=== PATIENT | male | born 1935 | race Caucasian/White ===

== ENCOUNTER 2017-10-19 18:07 | Inpatient (IN) | payer OTHER, MEDICARE ==
[~2017-10-19] VITALS: Ht 170.2 cm; Wt 79.9 kg
[~2017-10-19 18:07] MED LIST: AMIODARONE HCL200 M2 PO; ASPIRIN EC325 MG PO; ASPIRIN EC81 M1 PO; CARVEDILOL3.125 M1 PO; CARVEDILOL6.25 MG PO; FIBERCON625 M1 PO; FLEXERIL10 MG PO; FUROSEMIDE40 MG PO; IRBESARTAN75 MG PO; PERCOCET 325 MG1 TA2 PO; PRAVASTATIN SOD20 M2 PO; PRAVASTATIN SOD20 MG PO
[2017-10-19 18:50] LABS: ABSOLUTE BASOPHIL COUNT 0 /CUMM (0.0-0.2); ABSOLUTE EOSINOPHIL COUNT 0.1 /CUMM (0.0-0.7); ABSOLUTE GRANULOCYTE CT 3.7 /CUMM (1.4-6.5); ABSOLUTE LYMPH COUNT 0.9 /CUMM (1.2-3.4); ABSOLUTE MONOCYTE COUNT 0.6 /CUMM (0.10-0.60); BASOPHIL % 0.5 % (0.0-2.0); GRANULOCYTE % 68.9 % (42.2-75.2); HEMATOCRIT 35.7 % (42-52); MEAN CORPUSCULAR HGB CONC 32.1 G/DL (33.0-37.0); MEAN CORPUSCULAR VOLUME 96.4 FL (80.0-94.0); MEAN PLATELET VOLUME 8.7 FL (7.4-10.4); PLATELET COUNT 147 /CUMM (130-400); RBC DISTRIBUTION WIDTH 14.9 % (11.5-14.5); WHITE BLOOD CELL COUNT 5.4 /CUMM (4.8-10.8)
--- NOTE | 2017-10-19 19:47 | ED CARDIAC/CP/PALPITATIONS ---
History of Present Illness General Chief Complaint: General Adult Stated Complaint: SWELLING TO LOWER EXTREMITIES/?UTI Source: patient, family, old records Exam Limitations: no limitations Vital Signs & Intake/Output Vital Signs & Intake/Output Vital Signs Date Time Temp Pulse Resp B/P B/P Pulse O2 O2 Flow FiO2 Mean Ox Delivery Rate 10/19 1812 97.0 81 17 117/71 95 Room Air Allergies Coded Allergies: ramipril (Severe, CONFUSION 08/18/17) Reconcile Medications Amiodarone HCl 200 MG TABLET 0.5 TAB PO QAM HEART (Reported) Aspirin (Ecotrin*) 81 MG TABLET.DR 1 TAB PO QAM HEART/BLOOD (Reported) Calcium Polycarbophil (Fibercon) 625 MG TABLET 2 TAB PO DAILY FIBER Carvedilol 3.125 MG TABLET 1 TAB PO BID HEART (Reported) Furosemide 40 MG TABLET 1 TAB PO BID DIURETIC (Reported) Pravastatin Sodium 20 MG TABLET 1 TAB PO QPM CHOLESTEROL (Reported) Triage Note: PT TO ED WITH C/O WORSENING BLE EDEMA OVER THE PAST COUPLE DAYS. TAKES DAILY LASIX. REPORTS 4 LB WEIGHT GAIN IN THAT TIME PERIOD. DENIES SOB. ALSO REPORTS URINARY URGENCY/FREQUENCY AT NIGHT RECENTLY. PER PTS DAUGHTER, SEEMS SLIGHTLY CONFUSED FROM BASELINE. Triage Nurses Notes Reviewed? yes Onset: Abrupt Duration: day(s): (3), constant Timing: recent history Quality/Severity: moderate Radiation: no radiation Activities at Onset: none Modifying Factors: Worsens With: movement. Nitro Today/Relief: no nitro taken today Associated Symptoms: DENIES HPI: 82 year old male with past medical history of dilated cardiomyopathy, heart failure with reduced ejection fraction of 20% status post pacemaker placement, chronic kidney disease, history of pericarditis and left bundle branch block presents to the ER for evaluation complaining of a 4 pound weight gain in 3 days associated with worsening bilateral lower extremity swelling feeling winded short of breath. Patient is been unable to lay back secondary to shortness of breath he is on 40 mg Lasix twice a day no recent change in his dose. His executive talent acquisition consultant is Dr. Gardner he denies chest pain cough fever chills. He reports urinary urgency which she attributes to being on his Lasix. (Dimple TAMAYO,Blaze) Past History Travel History Traveled to [place] past 21 day No Medical History Any Pertinent Medical History? see below for history Neurological: NONE EENT: NONE Cardiovascular: AFIB (? transient), cardiomyopathy, CHF, NSTEMI (possibly), BRADYCARDIA Respiratory: NONE Gastrointestinal: ? hx colon polyps Hepatic: NONE Renal: chronic kidney disease Musculoskeletal: degen joint disease, falls Psychiatric: NONE Endocrine: NONE Blood Disorders: NONE Cancer(s): NONE EDUCATION REP/Reproductive: NONE History of MRSA: No History of VRE: No History of CDIFF: No Surgical History Surgical History: Medtronic AICD/PPM placed 2012, with multiple battery/lead replacements, last in 04/2017 Psychosocial History Who do you live with Patient/Self Services at Home None What is your primary language Cambodian Tobacco Use: Never used Family History Family History, If Any: MOTHER, , Age 90; Cause: CHF (congestive heart failure). FATHER (Hx fall). , Age 90; Cause: Pneumonia. Hx Contributory? No (Blaze You) Review of Systems Review of Systems Constitutional: Reports: see HPI. Comments Review of systems: See HPI, All other systems negative. Constitutional, no chills no fever, HEENT: no sore throat no congestion Cardiovascular: No chest pain , Skin: no rashes, no change in skin Respiratory: dyspnea no cough GI: No nausea no vomiting, no diarrhea, : No dysuria Muscle skeletal: No joint pain, no back pain, Neurologic: , no headache Heme/endocrine: No bruising Immunology: No lymphadenopathy (Blaze You) Physical Exam Physical Exam General Appearance: well developed/nourished, alert, awake Cardiovascular: regular rate/rhythm Comments: Well-developed well-nourished person in no acute distress HEENT: Normal EENT exam; PERRL, EOMI. HEAD is atraumatic. moist mucous membranes. Neck: Supple, no lymphadenopathy, normal range of motion Back: Nontender, no CVA tenderness. Full range of motion Cardiovascular: Regular rate and rhythms no murmurs Respiratory: No respiratory distress. Patient speaking in full complete sentences diminished breath sounds bilaterally Abdomen: Soft, nontender nondistended, no appreciable organomegaly. No ascites. Extremity: 3+ pitting lower extremity edema, full range of motion of extremities , 5 out of 5 strength noted to bilateral upper and lower extremities Neuro: Alert oriented x3, motor sensory normal, There were no obvious focal neurologic abnormalities. Skin: No appreciable rash on exposed skin, skin is warm and dry. Psych: Mood and affect is normal, memory and judgment is normal. Core Measures ACS in differential dx? Yes CVA/TIA Diagnosis No Sepsis Present: No Sepsis Focused Exam Completed? No (Blaze You) Progress Differential Diagnosis: AMI, aortic dissection, atrial fibrillation, CHF/pulm edema, musculoskeletal pain, pneumonia, pneumothorax, pulmonary embolism, unstable angina Diagnostic Imaging: Viewed by Me: Radiology Read. Discussed w/RAD: Radiology Read. Radiology Impression: PATIENT: TRISTAN HUBBARD JR PRESENT AGE: 82 PATIENT ACCOUNT NO: [id number] : 33 LOCATION: [facility] ORDERING PHYSICIAN: Bret TAMAYO SERVICE DATE: 10/19/17 EXAM TYPE : RAD - XRY-CHEST XRAY, TWO VIEWS EXAMINATION: CHEST 2 VIEWS CLINICAL INFORMATION: Shortness of breath. COMPARISON: 08/18/2017. TECHNIQUE: PA and lateral views of the chest were obtained. FINDINGS: The cardiac silhouette is enlarged, though stable. Pacer leads overlie the right atrium and right ventricle. There is a small left pleural effusion. There is a trace right pleural effusion. There is associated airspace disease at the left lung base. The osseous structures are stable. IMPRESSION: Stable cardiomegaly with left greater than right bilateral pleural effusions. Associated airspace disease is present at the left lung base. DICTATED BY: Tobi Lovelace MD DATE/TIME DICTATED :10/19/171944 GRAIN ELEVATOR AGENT:JANICE DATE/TIME TRANSCRIBED:10/19/171944 CONFIDENTIAL, DO NOT COPY WITHOUT APPROPRIATE AUTHORIZATION. < Electronically signed in Other Vendor System> SIGNED BY: Tobi Lovelace MD 10/19/171948 Initial ED EKG: normal axis (PACED ), PACED AT 80, NO ACUTE ST SEG CHANGES, NORMAL AXIS (Blaze You) Plan of Care: Orders Procedure Date/time Status Heart Healthy Diet 10/20 B Active Misc Message 10/19 2137 Active ED Holding Orders 10/19 2137 Active Admit to inpatient 10/19 2137 Active Vital Signs 10/19 2137 Active Code Status 10/19 2137 Active Telemetry/Filler Shredder Helper 10/20 2007 Active URINALYSIS 10/19 1818 Complete TROPONIN LEVEL 10/19 1818 Complete COMPREHENSIVE METABOLIC PANEL 10/19 1818 Complete CBC WITHOUT DIFFERENTIAL 10/19 1818 Complete B-TYPE NATRIURETIC PEP (BNP) 10/19 1818 Complete EKG 10/19 1818 Active Laboratory Tests 10/19/171848: Urine Color YEL, Urine Clarity CLEAR, Urine pH 6.0, Ur Specific [place] 1.010, Urine Protein NEG, Urine Ketones NEG, Urine Nitrite NEG, Urine Bilirubin NEG, Urine Urobilinogen 0.2, Ur Leukocyte Esterase SMALL H, Ur Microscopic SEDIMENT EXAMINED, Urine RBC RARE, Urine WBC RARE, Ur Epithelial Cells RARE, Urine Bacteria RARE H, Urine Mucus RARE, Urine Hemoglobin NEG, Urine Glucose NEG 10/19/171839: Anion Gap 14, Estimated GFR 45 L, BUN/Creatinine Ratio 18.7, Glucose 93, Calcium 9.5, Total Bilirubin 0.7, AST 17, ALT 18 L, Alkaline Phosphatase 69, Troponin I 0.02, [id number] Pept 6390 H, Total Protein 6.5, Albumin 3.9, Globulin 2.6, Albumin/Globulin Ratio 1.5, CBC w Diff NO MAN DIFF REQ, RBC 3.70 L, MCV 96.4 H, MCH 31.0, MCHC 32.1 L, RDW 14.9 H, MPV 8.7, Gran % 68.9, Lymphocytes % 17.7 L, Monocytes % 10.9 H, Eosinophils % 2.0, Basophils % 0.5, Absolute Granulocytes 3.7, Absolute Lymphocytes 0.9 L, Absolute Monocytes 0.6, Absolute Eosinophils 0.1, Absolute Basophils 0 Labs x-ray were ordered from triage patient medicated with Lasix 40 mg IV call placed his executive talent acquisition consultant Dr. Gardner Case discussed with Dr. Nguyen who evaluated the patient agrees with plan I discussed the patient is family at length all of his labs need for admission at this time wishing agreement with. Patient's creatinine is at baseline. Case discussed with Dr. FLETCHER will admit (Blaze You) (Wendy PIERCE,Naeem Wolf) Departure Departure Time of Disposition: 2125 Disposition: STILL A PATIENT Condition: Stable Clinical Impression Primary Impression: CHF exacerbation Referrals: Patient Has No Primary Care Dr (PCP/Family) Departure Forms: Customer Survey General Discharge Information Admission Note Spoke With: Johnson PIERCE,Lionel Documentation of Exam: Documentation of any treatments & extenuating circumstances including Concerns Regarding Discharge (functional status, medication knowledge or non-compliance, living conditions, etc.) that warrant an admission rather than observation: [ Cardiology consult telemetry monitoring IV diuresis patient has failed outpatient treatment premature discharge would BE medically harmful (Blaze You) PA/STRATEGIC PARTNERSHIP REPRESENTATIVE Co-Sign Statement Statement: ED Attending supervision documentation- [X] I saw and evaluated the patient. I have also reviewed all the pertinent lab results and diagnostic results. I agree with the findings and the plan of care as documented in the PA's/STRATEGIC PARTNERSHIP REPRESENTATIVE's documentation. Patient presents for evaluation of worsening shortness of breath and increasing weight and lower extremity edema. Patient's shortness of breath worsens with lying flat. Past medical history of congestive heart failure. Physical examination reveals decreased air entry bilaterally (with poor inspiratory effort) with mild crackles. Lower extremities reveal 2+ bilateral pitting edema. [] I have reviewed the ED Record and agree with the PA's/STRATEGIC PARTNERSHIP REPRESENTATIVE's documentation. [] Additions or exceptions (if any) to the PAs/STRATEGIC PARTNERSHIP REPRESENTATIVE's note and plan are summarized below: [] (Wendy PIERCE,Naeem Wolf) Critical Care Note Critical Care Note Critical Care Time: non-applicable (Blaze You)
--- NOTE | 2017-10-19 21:59 | History & Physical ---
Sheela PIERCE,[facility] 10/19/17 9339: General Information and HPI History of Present Illness: Mr. Grover is an 82-year-old male with past medical history of HFrEF (EF 20% in 2012), bradycardia status post pacemaker placement, CKD, pericarditis followed by Dr. Gardner who presents with complaints of retaining water. The patient was admitted in July for GI bleed and has been well since then. 4-5 days ago, he started becoming short of breath that was worse with lying down but not worse with exertion. He also noticed some urinary frequency. He notes that he had Breanna's about 5 days ago and he has gained 6 pounds in the past week. He normally uses 0 pillows to sleep and this has not changed. He denies any chest pain, dull pain, nausea, vomiting, diarrhea, dysuria, headache, rash, fever, or chills. He is a former smoker denies alcohol or recreational drug use. Allergies/Medications Allergies: Coded Allergies: ramipril (Severe, CONFUSION 08/18/17) Home Med list Amiodarone HCl 200 MG TABLET 0.5 TAB PO QAM HEART (Reported) Aspirin (Ecotrin*) 81 MG TABLET.DR 1 TAB PO QAM HEART/BLOOD (Reported) Calcium Polycarbophil (Fibercon) 625 MG TABLET 2 TAB PO DAILY FIBER Carvedilol 3.125 MG TABLET 1 TAB PO BID HEART (Reported) Furosemide 40 MG TABLET 1 TAB PO BID DIURETIC (Reported) Pravastatin Sodium 20 MG TABLET 1 TAB PO QPM CHOLESTEROL (Reported) Past History Travel History Traveled to [place] past 21 day No Medical History Neurological: NONE EENT: NONE Cardiovascular: cardiomyopathy, CHF, NSTEMI (possibly), BRADYCARDIA Respiratory: NONE Gastrointestinal: ? hx colon polyps Hepatic: NONE Renal: chronic kidney disease Musculoskeletal: degen joint disease, falls Psychiatric: NONE Endocrine: NONE Blood Disorders: NONE Cancer(s): NONE BRANCHER/Reproductive: NONE History of MRSA: No History of VRE: No History of CDIFF: No Surgical History Surgical History: Medtronic AICD/PPM placed 2012, with multiple battery/lead replacements, last in 04/2017 Past Family/Social History Family History Relations & Conditions if any MOTHER, , Age 90; Cause: CHF (congestive heart failure). FATHER (Hx fall). , Age 90; Cause: Pneumonia. Psychosocial History Who Do You Live With? child (dtr/POA, Roxy Cam) Services at Home: None Primary Language: Icelandic Smoking Status: Former Smoker ETOH Use: denies use Living Will? no Power of Manager Immunology/HCP? yes Name of POA/HCP: dtr Roxy Cam [phone] Functional Ability ADLs Independent: dressing, eating, toileting, bathing. Ambulation: independent IADLs Independent: shopping, housework, finances, food prep, telephone, medication admin. Needs Assist: transportation. Review of Systems Review of Systems Constitutional: Reports: no symptoms. EENTM: Reports: no symptoms. Cardiovascular: Reports: see HPI. Respiratory: Reports: no symptoms. GI: Reports: no symptoms. Genitourinary: Reports: no symptoms. Musculoskeletal: Reports: no symptoms. Skin: Reports: no symptoms. Neurological/Psychological: Reports: no symptoms. Hematologic/Endocrine: Reports: no symptoms. Immunologic/Allergic: Reports: no symptoms. All Other Systems: Reviewed and Negative Exam & Diagnostic Data Last 24 Hrs of Vital Signs/I&O Vital Signs Date Time Temp Pulse Resp B/P B/P Pulse O2 O2 Flow FiO2 Mean Ox Delivery Rate 10/19 2234 98.0 80 16 97/62 96 Room Air 10/19 2111 Room Air 10/19 2018 98.1 84 18 124/72 96 Room Air 10/19 1812 97.0 81 17 117/71 95 Room Air Physical Exam General Appearance Alert, Oriented X3, Cooperative, No Acute Distress HEENT Atraumatic, PERRLA, EOMI Neck No JVD Cardiovascular Regular Rate, Normal S1, Normal S2 Lungs mild crackles at base Abdomen Normal Bowel Sounds, Soft, No Tenderness Extremities Normal Pulses, 2+ pitting edema to below knee bilaterally Last 24 Hrs of Labs/Aakash: Laboratory Tests 10/19/17 184: Urine Color YEL, Urine Clarity CLEAR, Urine pH 6.0, Ur Specific [place] 1.010, Urine Protein NEG, Urine Ketones NEG, Urine Nitrite NEG, Urine Bilirubin NEG, Urine Urobilinogen 0.2, Ur Leukocyte Esterase SMALL H, Ur Microscopic SEDIMENT EXAMINED, Urine RBC RARE, Urine WBC RARE, Ur Epithelial Cells RARE, Urine Bacteria RARE H, Urine Mucus RARE, Urine Hemoglobin NEG, Urine Glucose NEG 10/19/17 184: Anion Gap 14, Estimated GFR 45 L, BUN/Creatinine Ratio 18.7, Glucose 93, Calcium 9.5, Total Bilirubin 0.7, AST 17, ALT 18 L, Alkaline Phosphatase 69, Troponin I 0.02, Nsd-E-Sjsshbujbqw Pept 6390 H, Total Protein 6.5, Albumin 3.9, Globulin 2.6, Albumin/Globulin Ratio 1.5, CBC w Diff NO MAN DIFF REQ, RBC 3.70 L, MCV 96.4 H, MCH 31.0, MCHC 32.1 L, RDW 14.9 H, MPV 8.7, Gran % 68.9, Lymphocytes % 17.7 L, Monocytes % 10.9 H, Eosinophils % 2.0, Basophils % 0.5, Absolute Granulocytes 3.7, Absolute Lymphocytes 0.9 L, Absolute Monocytes 0.6, Absolute Eosinophils 0.1, Absolute Basophils 0 Assessment/Plan Assessment: Mr. Grover is an 82-year-old male with past medical history of HFrEF (EF 20% in 2013), bradycardia status post AICD with biventricular pacemaker, CKD, pericarditis followed by Dr. Gardner who presents with complaints of retaining water. On presentation, vital signs were T 97.0, HR 81, RR 17, BP 117/71, saturating 95 % on room air. Laboratories are significant for hemoglobin 11.5, chloride 94, BUN 20, creatinine 1.5 (baseline 1.3) LFTs negative, BNP 6390, troponin 0 0.02, negative urinalysis. Chest x-ray shows left greater than right pleural effusions. He will be admitted to telemetry and treated for the following problems: 1. Acute decompensated heart failure 2. Macrocytic anemia #Acute acute decompensated heart failure: Patient presents with signs and symptoms of heart failure. His previous echocardiogram in 2013 showed an ejection fraction of 20%. He is followed by Dr. Gardner. He is [place] Heart Association classification 2/3 based on his exercise tolerance. -TTE -Furosemide 40 mg IV twice daily -Cardiology consult -Daily weights, strict I's and O's -Telemetry monitoring -EKG/troponins 3 -Given his ejection fraction and [place] Heart Association classification, patient would likely benefit from addition of spironolactone #Macrocytic anemia: Mild and chronic. No active bleeding. -Iron studies, B12, folate #Chronic medical problems: -Continue other home medications DVT prophylaxis with heparin CHF diet Full code As Ranked By This Provider Problem List: 1. CHF exacerbation Core Measures/Misc (02/12) Acute Coronary Syndrome ACS Diagnosis: No Congestive Heart Failure Congestive Heart Failure Diagnosis Yes Last Known EF % 20 Cerebrovascular Accident CVA/TIA Diagnosis: No VTE (View Protocol) VTE Risk Factors Age>40 No Mechanical VTE Prophylaxis d/t N/A MechProphylax Ordered No VTE Pharm Prophylaxis d/t NA PharmProphylax ordered Sepsis (View protocol) Sepsis Present: No If YES complete Sepsis Event Note If YES complete Sepsis Event Note AsiyaBlaze 10/19/17 2324: Core Measures/Misc (02/12) Sepsis (View protocol) If YES complete Sepsis Event Note If YES complete Sepsis Event Note Resident Review Statement Resident Statement: examined this patient, discussed with wireless internet installer, agreed with wireless internet installer, reviewed EMR data (avail), reviewed images Other Findings: This is an 82 years old with a past medical history of heart failure with reduced ejection fraction 20% in 2013, CKD stage IIIa who has been AICD with biventricular pacer and is presenting with 5 days history of progressive increasing body weight and shortness of breath on lying flat. Patient reports that his weight has increased from 179-155 pounds in the last 5 days he has been taking and tolerating his medication well including diuretics. However, upon further questioning this patient has been taking high salt diet eating at [employer] and also using cane foot predominantly sardines which are known to have a lot of salt preservatives. He is reporting shortness of breath that improves on sitting, he denies using pillows or change in the number of pillows lately. Patient denies any chest pain chest pressure, shortness of breath more than usual upon exertion, dysuria though he reports frequency. On arrival patient's vitals were stable saturating 95% on room air with respiration rate of 17. When examined the patient seated comfortably on the chair not in any acute distress oriented to time place and person and responding politely to questions. CVS: Regular rate and rhythm normal S1-S2 no murmurs Neck No distended JVD Lungs: Crackles in the bases Abdomen: Soft normal contour moving with respiratio Extremities: Edema extending to just below the knees Labs: Macrocytic anemia with H&H of 11.5 and 35.7 and MCV of 96.4, increased creatinine of 1.5 within baseline,, increase beta natruretic peptide of 6390, initial negative troponin 0.02 CXR: Stable cardiomegaly with bilateral pleural effusion more left than right Assessment and plan Acute exacerbation systolic CHF Heart failure with reduced ejection fraction CKD stage IIIa Admit the patient to telemetry floor Continue with cardiac monitoring Vital signs every shift Trend troponin and EKG 3 samples Repeat echocardiogram Cardiology consult a.m. This patient has ejection fraction less than 35 will benefit from addition of spironolactone, discuss with cardiology merits for spironolactone. Continue home medication amiodarone 100 mg daily, carvedilol 3.125 mg twice a day, aspirin 81 mg Start the patient on IV Lasix 40 mg twice a day Nutritional consult: Patient education on CHF and role of salt on exacerbation Heparin for DVT prophylaxis CHF diet Strict I and O's with daily weights Patient is full code Johnson PIERCE, [facility] 10/19/17 2325: Core Measures/Misc (02/12) Sepsis (View protocol) If YES complete Sepsis Event Note If YES complete Sepsis Event Note Attending MD Review Statement Attending Statement Attending MD Statement: examined this patient, discuss w/resident/PA/HOIST MECHANIC, agreed w/resident/PA/HOIST MECHANIC, discussed with family, reviewed images, amended to note Attending Assessment/Plan: 82 yo M with h/o severe dilated cardiomyopathy, chronic systolic heart failure ( EF 20%), high grade ventricular ectopy and LBBB s/p AICD and biventricular pacemaker, CKD stage 3, pericarditis (2012), recently admitted (July 2017) for lower GI bleed, is here for 1 week h/o progressively worsening dyspnea, orthopnea, lower extremity edema and weight gain of 4-5 lbs (baseline is 179 lbs ). He has been eating out at [employer] last week. He watches his fluid intake. He denies chest pain, palpitations or lightheadedness. He reports compliance with his medications especially lasix. Vitals stable. Exam: AAO, sitting on the chair, comfortable, jugular fullness noted patient in seated position, Chest bibasilar crackles+, Heart S1S2 regular, LE: 2+ pitting edema. Labs: no leukocytosis, H/H 11.5/35/7, Plt 147, BUN 28, Creat 1.5 (baseline), trop neg, proBNP 6390. CXR: cardiomegaly with left greater than right bilateral pleural effusions, associated airspace disease at left lung base. EKG: paced, ventricular bigeminy, Qtc 533. Echo (2012): EF 20%, moderate MR, mild pulmonary hypertension. Assessment and plan: 1. Acute exacerbation of chronic systolic heart failure 2. Severe dilated cardiomyopathy 3. S/p AICD and PPM 4. CKD stage 3 stable - Admit to Telemetry - Rule out ACS - Strict I/O's, daily weights - IV lasix 40 BID - Nutrition consult - Echocardiogram - Check TSH and free T4 - Cardio consult Dr. Gardner - Continue home meds DVT ppx Hep SC. Full code.
--- NOTE | 2017-10-19 22:50 | Admission Certification ---
Admission Certification Certification Statement - As attending physician, I certify that at the time of - admission, based on clinical presentation, severity of - symptoms, need for further diagnostic testing and - therapeutic interventions, and risk of adverse outcomes - without in-hospital treatment, in my clinical assessment, - this patient requires an acute hospital stay for a minimum - of two nights or longer. I have also considered psychsocial - factors such as support system, advanced age, financial - issues, cognitive issues, and failed out-patient treatments, - past re-admission history, safety of patient, and lack of - compliance as applicable. Specific rationale supporting this admission is: Acute exacerbation of chronic systolic heart failure.
[2017-10-19 22:57] VITALS: BP 110/64
[2017-10-20 06:31] VITALS: BP 90/52
[2017-10-20 06:56] VITALS: BP 102/64
--- NOTE | 2017-10-20 07:48 | PN- Housestaff ---
Bisi PIERCE,Sheryl 10/20/17 0748: Subjective Follow-up For: Acute decompensated heart failure Tele-Events Since Last Visit: Paced 79-84, PVCs Subjective: Patient was seen and examined today. Patient reports that he feels short of breath if he tries to lie down. Patient reports he continues to have lower extremity swelling. Patient denies any chest pain, palpitations, lightheadedness, dizziness, nausea/vomiting, hematuria/dysuria. No acute events overnight. Review of Systems Constitutional: Reports: see HPI. Objective Last 24 Hrs of Vital Signs/I&O Vital Signs Date Time Temp Pulse Resp B/P B/P Pulse O2 O2 Flow FiO2 Mean Ox Delivery Rate 10/20 1600 Room Air 10/20 1400 98.6 80 16 110/52 94 Room Air 10/20 0907 80 102/64 10/20 0907 80 102/64 10/20 0800 97 Nasal 2.0L Cannula 10/20 0656 80 102/64 10/20 0631 98.3 83 18 90/52 97 Room Air 10/20 0148 93 Nasal 2.0L Cannula 10/20 0034 98 Nasal 2.0L Cannula 10/19 2358 8 110/64 10/19 2257 Room Air Room Air 10/19 2257 98.4 80 18 110/64 88 Room Air 10/19 2234 98.0 80 16 97/62 96 Room Air 10/19 2111 Room Air 10/19 2019 98.1 84 18 124/72 96 Room Air 10/19 1812 97.0 81 17 117/71 95 Room Air Intake & Output 10/20 1600 10/20 0800 10/20 0000 Intake Total 450 Output Total 500 625 125 Balance -50 -625 -125 Intake, Oral 450 Output, Urine 500 625 125 Patient 185 lb 185 lb 186 lb Weight Weight Bed scale Measurement Method Physical Exam General Appearance: Alert, Cooperative, No Acute Distress Skin Temp/Moisture Exam: Warm/Dry Sepsis Skin Exam (color): Normal for Ethnicity HEENT: Atraumatic, Mucous Membr. moist/pink Cardiovascular: Regular Rate, Normal S1, Normal S2 Lungs: bibasilar crackles Abdomen: Normal Bowel Sounds, Soft, No Tenderness Neurological: Normal Speech, Cranial Nerves 3-12 NL Extremities: No Clubbing, No Cyanosis, Normal Pulses, No Tenderness/Swelling, bilateral 2+ lower extremity pitting edema Current Medications: Current Medications Sig/Mil[place] Start time Last Medication Dose Route Stop Time Status Admin Amiodarone HCl 100 MG QAM 10/20 0900 AC 10/20 PO 09 Aspirin Buffered 81 MG QAM 10/20 0900 AC 10/20 PO 0908 Carvedilol 3.125 MG BID 10/19 2330 AC 10/20 PO 0907 Digoxin 0.125 MG 1700 10/20 1800 UNVr PO Furosemide 40 MG 0800 & 1700 10/20 0800 AC 10/20 IV 1723 Furosemide 0 .STK-MED ONE 10/19 2156 DC IV Furosemide 40 MG ONCE ONE 10/19 2014 DC 10/19 IV 10/19 Heparin Sodium 5,000 UNIT Q8 10/20 06 AC 10/20 (Porcine) SC 1458 Polycarbophil 1,250 MG DAILY 10/20 0900 AC 10/20 PO 0908 Pravastatin Sodium 20 MG QPM 10/20 2100 AC PO Last 24 Hrs of Lab/Aakash Results Last 24 Hrs of Labs/Mics: Laboratory Tests 10/20/17 0621: Anion Gap 10, Estimated GFR 53 L, BUN/Creatinine Ratio 21.5, Troponin I 0.03, TSH 0.451, Free T4 2.12 H 10/20/17 0128: Troponin I 0.03 10/20/17 0040: Troponin I Cancelled 10/19/17 184: Urine Color YEL, Urine Clarity CLEAR, Urine pH 6.0, Ur Specific [place] 1.010, Urine Protein NEG, Urine Ketones NEG, Urine Nitrite NEG, Urine Bilirubin NEG, Urine Urobilinogen 0.2, Ur Leukocyte Esterase SMALL H, Ur Microscopic SEDIMENT EXAMINED, Urine RBC RARE, Urine WBC RARE, Ur Epithelial Cells RARE, Urine Bacteria RARE H, Urine Mucus RARE, Urine Hemoglobin NEG, Urine Glucose NEG 10/19/17 1840: Anion Gap 14, Estimated GFR 45 L, BUN/Creatinine Ratio 18.7, Glucose 93, Calcium 9.5, Iron 49, TIBC 348, Ferritin 78.0, Total Bilirubin 0.7, AST 17, ALT 18 L, Alkaline Phosphatase 69, Troponin I 0.02, [id number] Pept 6390 H, Total Protein 6.5, Albumin 3.9, Globulin 2.6, Albumin/Globulin Ratio 1.5, Vitamin B12 368, Folate 11.1, CBC w Diff NO MAN DIFF REQ, RBC 3.70 L, MCV 96.4 H, MCH 31.0, MCHC 32.1 L, RDW 14.9 H, MPV 8.7, Gran % 68.9, Lymphocytes % 17.7 L, Monocytes % 10.9 H, Eosinophils % 2.0, Basophils % 0.5, Absolute Granulocytes 3.7, Absolute Lymphocytes 0.9 L, Absolute Monocytes 0.6, Absolute Eosinophils 0.1, Absolute Basophils 0 Assessment/Plan Assessment: Patient is an 82-year-old male with past medical history of heart failure with reduced ejection fraction of 20% status post AICD and pacemaker placement, CKD, pericarditis presenting this admission with dyspnea and fluid overload. Patient is currently admitted to the telemetry floor for management of the following: Problems: 1. Acute on chronic decompensated heart failure-continues to be dyspneic with lower extremity swelling, currently being diuresed with IV Lasix 40 mg twice daily, cardiology consulted. Patient will be started on digoxin 0.125 mg daily 2. Chronic conditions: CKD stage III, severe dilated cardiomyopathy Plan: Admitted to telemetry Continuous telemetry monitoring Continue to diuresis with IV Lasix 40 mg twice daily Cardiology consulted and started on digoxin today Monitor renal function and electrolytes Continue home medications: Carvedilol, amiodarone, aspirin, pravastatin Diet: Heart healthy DVT prophylaxis: Heparin SQ Code: Full code Problem List: 1. CHF exacerbation Pain Ratin Pain Location: n/a Pain Goal: Remain pain free Pain Plan: per pain pathway Tomorrow's Labs & Rationales: cbc melissap Clarence Carbajal MD 10/20/17 1311: Attending MD Review Statement Attending Statement Attending MD Statement: examined this patient, discuss w/resident/PA/HIGH SCHOOL MUSIC DIRECTOR, agreed w/resident/PA/HIGH SCHOOL MUSIC DIRECTOR, reviewed EMR data (avail) Attending Assessment/Plan: 82M PMH severe dilated cardiomyopathy, chronic systolic heart failure (EF 20%), high grade ventricular ectopy and LBBB s/p AICD and biventricular pacemaker, CKD stage 3, pericarditis (2012), recently admitted (July 2017) for lower GI bleed admitted with dyspnea on exertion and weight gain in the setting of acute on chronic systolic CHF. Patient feels well today, still dyspneic, stable vitals, labs reviewed. 1. Acute on chronic systolic CHF 2. Severe dilated cardiomyopathy Plan - Continue on telemetry - Continue IV Lasix, may increase to 60mg if diuresis is inadequate - Continue home medications - Cardiology consult - DVT PPx
[2017-10-20 14:00] VITALS: BP 110/52
--- NOTE | 2017-10-20 17:27 | Cons- Cardiology ---
General Information and HPI Consulting Request Date of Consult: 10/20/17 Requested By: Clarence Carbajal MD History of Present Illness: Jacob is an 82 year old male who carries a history of congestive heart failure and AICD with biventricular pacemaker. Jacob has been feeling short of breath for about two weeks but his symptoms became progressively worse prompting his presentation to the ER. He typically sleeps lying flat but recently has had orthopnea along with leg swelling. Otherwise he denies a cough, chest pain, pressure or tightness, lightheadedness or palpitations. He is doing a bit better following diuresis. To review this patient's prior history, on last visit he demonstrated frequent PVC's which calmed down with the addition of Amiodarone. The dose of this drug was decreased. His heart rate is borderline slow but he is tolerating it well without lightheadedness or shortness of breath. Jacob remains normally active. He previously reported some orthopnea which seems to have abated. A prior Optivol was negative for fluid overload. He was previously seen by Dr. Rivas who noted a dramatic decrease in his ventricular ectopy. Overall he is more energetic since his ICD/biventricular pacer was placed. He is unaware of his ventricular ectopy when he does have it. The patient does have a plan for pacer lead removal and replacement along with a generator change due to high thresholds. It should be recalled that this patient was initially seen with complaints of a severe sharp pleuritic lower midsternal chest discomfort accompanied by shortness of breath. Cardiac workup included a lipid profile showing an LDL of 61, HDL of 56 and triglyderides of 58. His creatinine was 1.4. He ruled out for an WI. A stress test showed a moderate fixed inferior defect with apical thinning but no definite ischemia.The left ventricle was dilated. His echo showed a moderately enlarged LV with decreased EF of 20% with global hypokinesis. The left atrium was moderately enlarged. In terms of cardiac valves there was moderate mitral regurgitation, mild tricuspid regurgitation, and mild pulmonic insufficiency. Pulmonary pressures were elevated to 39mmHg. In consideration of his wide LBBB Dr. Rivas place an AICD with biventricular pacemaker. Finally, a cardiac cath showed a normal left main, luminal irregularities up to 40% in the LAD, luminal irregularities in the LCX, and the RCA was dominant with luminal irregularties. His EF was 15% with anterobasal dyskinesis. Allergies/Medications Allergies: Coded Allergies: ramipril (Severe, CONFUSION 08/18/17) Home Med List: Amiodarone HCl 200 MG TABLET 0.5 TAB PO QAM HEART (Reported) Aspirin (Ecotrin*) 81 MG TABLET.DR 1 TAB PO QAM HEART/BLOOD (Reported) Calcium Polycarbophil (Fibercon) 625 MG TABLET 2 TAB PO DAILY FIBER Carvedilol 3.125 MG TABLET 1 TAB PO BID HEART (Reported) Furosemide 40 MG TABLET 1 TAB PO BID DIURETIC (Reported) Pravastatin Sodium 20 MG TABLET 1 TAB PO QPM CHOLESTEROL (Reported) Review of Systems Review of Systems: A twelve point review of systems is unremarkable. Past History Travel History Traveled to [place] past 21 day No Medical History Blood Transfusion Hx: No Neurological: NONE EENT: NONE Cardiovascular: cardiomyopathy, CHF, NSTEMI (possibly), BRADYCARDIA Respiratory: NONE Gastrointestinal: ? hx colon polyps Hepatic: NONE Renal: chronic kidney disease Musculoskeletal: degen joint disease, falls Psychiatric: NONE Endocrine: NONE Blood Disorders: NONE Cancer(s): NONE BIG DATA SOLUTIONS ARCHITECT/Reproductive: NONE Surgical History Surgical History: [employer] AICD/PPM placed 2012, with multiple battery/lead replacements, last in 04/2017 Family History Relations & Conditions If Any: MOTHER, , Age 90; Cause: CHF (congestive heart failure). FATHER (Hx fall). , Age 90; Cause: Pneumonia. Psychosocial History Where Do You Live? Home Who Do You Live With? child (dtr/POA, Roxy Cam) Services at Home: None Primary Language: Chinese Smoking Status: Former Smoker ETOH Use: denies use Living Will? no Power of Foster Care Social Worker/HCP? yes Name of POA/HCP: dtr Roxy Cam [phone] Functional Ability ADLs Independent: dressing, eating, toileting, bathing. Ambulation: independent IADLs Independent: shopping, housework, finances, food prep, telephone, medication admin. Needs Assist: transportation. Exam & Diagnostic Data Vital Signs and I&O Vital Signs Date Time Temp Pulse Resp B/P B/P Pulse O2 O2 Flow FiO2 Mean Ox Delivery Rate 10/20 1600 Room Air 10/20 1400 98.6 80 16 110/52 94 Room Air 10/20 0907 80 102/64 10/20 0907 80 102/64 05/25 0800 97 Nasal 2.0L Cannula 10/20 0656 80 102/64 10/20 0631 98.3 83 18 90/52 97 Room Air 10/20 0148 93 Nasal 2.0L Cannula 10/20 0034 98 Nasal 2.0L Cannula 10/19 2358 8 110/64 10/19 2257 Room Air Room Air 10/19 225 98.4 80 18 110/64 88 Room Air 10/19 2234 98.0 80 16 97/62 96 Room Air 10/19 2111 Room Air 10/19 2018 98.1 84 18 124/72 96 Room Air 10/19 1812 97.0 81 17 117/71 95 Room Air Intake & Output 10/20 1600 10/20 0810/20 0000 10/19 0000 Intake Total 450 Output Total 500 625 125 Balance -50 -625 -125 Intake, Oral 450 Output, Urine 500 625 125 Patient 185 lb 185 lb 186 lb Weight Weight Bed scale Measurement Method Physical Exam: General: WD/WN male in NAD; alert and oriented x 3 HEENT: NC/AT, PERRL, EOMI Neck: no JVD, no carotid bruit Heart: RRR with ectopy Lungs: no crackles or wheezing Abdomen: soft, NT, +ve bowel sounds Extremties: 1+ leg edema bilaterally Assessment/Plan Assessment/Plan * This patient has decompensated CHF and is known to have a very low EF. Continue to diurese with Lasix at 40mg IV BID. He is known to have a very low EF but is protected by an AICD. Add digoxin at 0.125mg daily to improve his contractility with careful monitoring of his creatinine since digoxin is excreted via the kidneys. * On last office follow up this patient had a systolic pressure of about 90mmHg and his pressure remains low. In addition, he has had issues with hyperkalemia. We will assess his BP following his diuresis and if his BP will tolerate it we will begin a small dose of Spironolactone at 25mg daily with careful monitoring of his creatinine and potassium. * Continue Amiodarone and Coreg. Consult Acknowledgment - Thank you for your consult request.
[2017-10-20 23:19] VITALS: BP 108/76
[2017-10-21] VITALS (7 sets, daily range): BP systolic 96–124; BP diastolic 54–74
--- NOTE | 2017-10-21 07:33 | ECHOCARDIOGRAM REPORT ---
TRISTAN HUBBARD Age: 82 : 1935 Gender: M Exam Date: 10/20/2017 12:22 Exam Location: [facility] Ht (in): 67 Wt (lb): 186 BSA: 2.02 BP: 102 / 64 Ordering Physician: Blaze Braden MD Referring Physician: Blaze Braden MD Technologist: Peng Farah EMIL Room Number: Indications: HEART FAILURE Rhythm: paced rhythm Technical Quality: adequate/Definity contrast used FINDINGS Left Ventricle Normal left ventricular size with mild left ventricular hypertrophy. Severely decreased systolic function with global hypokinesis. The ejection fraction is visually estimated at 20%. Right Ventricle The right ventricle is normal in size and function. A defibrillator lead is noted in the right cardiac chambers. Right Atrium The right atrium is normal in size. Left Atrium The left atrium is moderately enlarged. The interatrial septum is intact. Mitral Valve The mitral valve is normal in structure and function. There is mild to moderate mitral regurgitation. Aortic Valve Structurally normal aortic valve without significant sclerosis or stenosis. There is no aortic regurgitation. Tricuspid Valve The tricuspid valve is normal in structure and function. There is mild tricuspid regurgitation. Pulmonary artery systolic pressure is normal. Pulmonic Valve Structurally normal pulmonic valve. There is no pulmonic regurgitation. Pericardium Normal pericardium without effusion. No pleural effusion. Great Vessels Normal aortic root dimension. The aortic arch and great vessels are well seen and are normal. CONCLUSIONS 1. Severely decreased EF of 20%. 2. Mild left ventricular hypertrophy. 3. Moderate left atrial enlargement. 4. Defibrillation lead noted in the right cardiac chambers. 5. Mild to moderate mitral regurgitation. 6. Mild tricuspid regurgitation. Dwight Gardner M.D. (Electronically Signed) Final Date: 21 Oct 2017 07:32 MEASUREMENTS (Male / Female) Normal Values 2D ECHO LV Diastolic Diameter PLAX 7.2 cm 4.2 - 5.9 / 3.9 - 5.3 cm LV Systolic Diameter PLAX 6.8 cm 2.1 - 4.0 cm LV Fractional Shortening PLAX 5.6 % 25 - 46 % LV Ejection Fraction 2D Teich 12.1 % IVS Diastolic Thickness 1.3 cm LVPW Diastolic Thickness 1.3 cm LV Relative Wall Thickness 0.4 LVOT Diameter 2.0 cm Aortic Root Diameter 2.8 cm LA Systolic Diameter LX 4.6 cm 3.0 - 4.0 / 2.7 - 3.8 cm LV Ejection Fraction MOD BP 38.6 % >= 55 % LV Diastolic Length 4C 8.5 cm 6.9 - 10.3 cm LV Diastolic Area 4C 47.9 cm LV Diastolic Volume MOD 4C 219.0 cm LV Ejection Fraction MOD 4C 40.2 % LV Stroke Volume MOD 4C 88.0 cm LV Systolic Length 4C 7.9 cm LV Systolic Area 4C 35.1 cm LV Systolic Volume MOD 4C 131.0 cm LV Ejection Fraction MOD 2C 36.1 % LV Diastolic Volume 4C AL 230.0 cm 85 - 139 / 69 - 109 cm LV Systolic Volume 4C AL 133.2 cm LV Ejection Fraction 4C AL 42.1 % LV Stroke Volume 4C AL 96.7 cm LV Ejection Fraction 2C AL 34.1 % LA Volume 116.0 cm 18 - 58 / 22 - 52 cm Ascending Aorta Diameter 3.1 cm DOPPLER AV Peak Velocity 103.0 cm/s AV Peak Gradient 4.2 mmHg AV Mean Velocity 67.8 cm/s AV Mean Gradient 2.0 mmHg AV Velocity Time Integral 19.7 cm LVOT Peak Velocity 67.7 cm/s LVOT Peak Gradient 1.8 mmHg LVOT Mean Velocity 42.2 cm/s LVOT Mean Gradient 1.0 mmHg LVOT Velocity Time Integral 11.3 cm LVOT Stroke Volume 35.5 cm AV Area Cont Eq vti 1.8 cm AV Area Cont Eq pk 2.1 cm MV Peak Velocity 125.0 cm/s MV Peak Gradient 6.3 mmHg MV Mean Velocity 71.3 cm/s MV Mean Gradient 3.0 mmHg Mitral E Point Velocity 89.8 cm/s Mitral A Point Velocity 71.6 cm/s Mitral E to A Ratio 1.3 MV PHT Velocity 130.0 cm/s MV Deceleration [place] 531.0 cm/s MV Pressure Half Time 73.4 ms MV Area PHT 3.0 cm MV Deceleration Time 243.0 ms MR Peak Velocity 417.0 cm/s MR Peak Gradient 69.6 mmHg MR ERO PISA 0.3 cm MR Regurgitant Volume PISA 34.1 cm TR Peak Velocity 285.0 cm/s TR Peak Gradient 32.5 mmHg Right Atrial Pressure 5.0 mmHg Pulmonary Artery Systolic Pressu 37.5 mmHg Right Ventricular Systolic Press 37.5 mmHg PV Peak Velocity 66.2 cm/s PV Peak Gradient 1.8 mmHg PV Mean Velocity 48.6 cm/s PV Mean Gradient 1.0 mmHg PV Velocity Time Integral 14.6 cm
[2017-10-21 08:36] LABS: ABSOLUTE BASOPHIL COUNT 0 /CUMM (0.0-0.2); ABSOLUTE EOSINOPHIL COUNT 0.1 /CUMM (0.0-0.7); ABSOLUTE GRANULOCYTE CT 4.5 /CUMM (1.4-6.5); ABSOLUTE LYMPH COUNT 0.8 /CUMM (1.2-3.4); ABSOLUTE MONOCYTE COUNT 0.6 /CUMM (0.10-0.60); BASOPHIL % 0.4 % (0.0-2.0); EOSINOPHIL % 1.2 % (0-5); GRANULOCYTE % 75.3 % (42.2-75.2); HEMATOCRIT 36.2 % (42-52); MEAN CORPUSCULAR VOLUME 96.8 FL (80.0-94.0); MEAN PLATELET VOLUME 9.7 FL (7.4-10.4); PLATELET COUNT 142 /CUMM (130-400); RED BLOOD CELL CT 3.73 /CUMM (4.70-6.10)
--- NOTE | 2017-10-21 09:14 | PN- Housestaff ---
Juany PIERCE,[facility] 10/21/17 0913: Subjective Follow-up For: Acute decompensated heart failure Tele-Events Since Last Visit: Paced rhythm, PVCs Heart rate 70-80 to Subjective: Patient states that his eye down in the bed to elevate his legs this morning but felt very short of breath. He sleeps in a recliner at home and cannot lie down flat. States his breathing is restricted. Denies any chest pain, palpitations, cough or fever/chills. Review of Systems Constitutional: Reports: no symptoms. EENTM: Reports: no symptoms. Cardiovascular: Reports: orthopena, peripheral edema. Respiratory: Reports: short of breath. Gastrointestinal: Reports: no symptoms. Genitourinary: Reports: no symptoms. Musculoskeletal: Reports: no symptoms. Skin: Reports: no symptoms. Neurological/Psychological: Reports: no symptoms. Hematologic/Endocrine: Reports: no symptoms. Immunologic/Allergic: Reports: no symptoms. Objective Last 24 Hrs of Vital Signs/I&O Vital Signs Date Time Temp Pulse Resp B/P B/P Pulse O2 O2 Flow FiO2 Mean Ox Delivery Rate 10/21 1637 79 96/56 10/21 1505 97.5 80 20 100/54 100 Nasal Cannula 10/21 0928 82 100/74 10/21 0928 82 100/74 10/21 0645 97.7 82 20 100/74 99 Nasal 2.0L Cannula 10/21 0000 Nasal 3.0L Cannula 10/20 2319 97.8 78 20 108/76 99 Nasal 2.0L Cannula 10/20 2116 80 106/70 10/20 1855 80 106/70 Intake & Output 10/21 1600 10/21 0800 10/21 0000 Intake Total 420 400 Output Total 850 Balance -430 400 Intake, IV 20 Intake, Oral 400 400 Number 1 Bowel Movements Output, Urine 850 Patient 184 lb Weight Weight Bed scale Measurement Method Physical Exam General Appearance: Alert, Cooperative, No Acute Distress Skin: No Rashes, No Breakdown Cardiovascular: Normal S1, Normal S2 Lungs: Normal Air Movement, crackles on bilateral lung bases Abdomen: Normal Bowel Sounds, Soft, No Tenderness Extremities: No Clubbing, No Cyanosis, +2 pitting edema bilaterally Current Medications: Current Medications Sig/[place] Start time Last Medication Dose Route Stop Time Status Admin Amiodarone HCl 100 MG QAM 10/20 0900 AC 10/21 PO 09 Aspirin Buffered 81 MG QAM 10/20 0900 AC 10/21 PO 0928 Carvedilol 3.125 MG BID 10/19 2330 AC 10/21 PO 09 Digoxin 0.125 MG 1700 10/20 1800 AC 10/21 PO 1637 Dobutamine HCl 250 MG Q10H 10/21 1630 AC Dextrose/Water 250 ML IV Furosemide 40 MG 0800 & 1700 10/20 0800 AC 10/21 IV 1638 Heparin Sodium 5,000 UNIT Q8 10/20 0600 AC 10/21 (Porcine) SC 1332 Polycarbophil 1,250 MG DAILY 10/20 0900 AC 10/21 PO 09 Pravastatin Sodium 20 MG QPM 10/20 2100 AC 10/20 PO 2115 Last 24 Hrs of Lab/Aakash Results Last 24 Hrs of Labs/Mics: Laboratory Tests 10/21/17 0610: Anion Gap 13, Estimated GFR 36 L, BUN/Creatinine Ratio 21.7, CBC w Diff NO MAN DIFF REQ, RBC 3.73 L, MCV 96.8 H, MCH 31.0, MCHC 32.0 L, RDW 15.0 H, MPV 9.7 , Gran % 75.3 H, Lymphocytes % 13.1 L, Monocytes % 10.0 H, Eosinophils % 1.2, Basophils % 0.4, Absolute Granulocytes 4.5, Absolute Lymphocytes 0.8 L, Absolute Monocytes 0.6, Absolute Eosinophils 0.1, Absolute Basophils 0 Assessment/Plan Assessment: Patient is an 82-year-old male with past medical history of heart failure with reduced ejection fraction of 20% status post AICD and pacemaker placement, CKD, pericarditis presenting this admission with dyspnea and fluid overload. Patient is currently admitted to the telemetry floor for management of the following: Problems: 1. Acute on chronic decompensated heart failure-continues to be dyspneic with lower extremity swelling, currently being diuresed with IV Lasix 40 mg twice daily, cardiology consulted. Patient will be started on digoxin 0.125 mg daily 2. Chronic conditions: CKD stage III, severe dilated cardiomyopathy Plan: Continuous telemetry monitoring Continue to diuresis with IV Lasix 40 mg twice daily Strict ins and outs and daily weights, negative fluid balance of 400 since admission Continue digoxin 0.125 mg daily Start the patient on dobutamine drip Appreciate Cardiology recommendations Creatinine creeping up (1.8 today ), Monitor renal function and electrolytes. Continue home medications: Carvedilol, amiodarone, aspirin, pravastatin Diet: Heart healthy DVT prophylaxis: Heparin SQ Code: Full code Problem List: 1. CHF exacerbation Pain Ratin Pain Location: None Pain Goal: Remain pain free Pain Plan: Pain pathway Tomorrow's Labs & Rationales: BEP(SLIME, on lasix) Clarence Carbajal MD 10/21/17 1742: Attending MD Review Statement Attending Statement Attending MD Statement: examined this patient, discuss w/resident/PA/ARMAMENT AIRCRAFT MECHANIC, agreed w/resident/PA/ARMAMENT AIRCRAFT MECHANIC, reviewed EMR data (avail) Attending Assessment/Plan: 82M PMH severe dilated cardiomyopathy, chronic systolic heart failure (EF 20%), high grade ventricular ectopy and LBBB s/p AICD and biventricular pacemaker, CKD stage 3, pericarditis (2012), recently admitted (July 2017) for lower GI bleed admitted with dyspnea on exertion and weight gain in the setting of acute on chronic systolic CHF. Patient feels well today, still dyspneic, stable vitals, labs reviewed. Poor diuresis. 1. Acute on chronic systolic CHF 2. Severe dilated cardiomyopathy Plan - Continue on telemetry - Start Dobutamine drip - Continue IV Lasix - I/O, daily weights - Continue home medications - Cardiology consult - DVT PPx
--- NOTE | 2017-10-21 11:08 | PN- Cardiology ---
Subjective Subjective: * Patient continue to report shortness of breath and orthopnea. * Echo shows a very low EF of 20%. * AV paced rhythm * creatinine is 1.8 Objective Vital Signs and I&Os Vital Signs Date Time Temp Pulse Resp B/P B/P Pulse O2 O2 Flow FiO2 Mean Ox Delivery Rate 10/21 09 82 100/74 10/21 0928 82 100/74 10/21 0645 97.7 82 20 100/74 99 Nasal 2.0L Cannula 10/21 0000 Nasal 3.0L Cannula 10/20 2319 97.8 78 20 108/76 99 Nasal 2.0L Cannula 10/20 2116 80 106/70 10/20 1855 80 106/70 10/20 1600 Room Air 10/20 1400 98.6 80 16 110/52 94 Room Air Intake & Output 10/21 0800 10/21 0000 10/20 1600 10/20 0810/20 0000 Intake Total 400 450 Output Total 500 625 125 Balance 400 -50 -625 -125 Intake, Oral 400 450 Number 1 Bowel Movements Output, Urine 500 625 125 Patient 184 lb 185 lb 185 lb 186 lb Weight Weight Bed scale Bed scale Measurement Method Physical Exam: General: WD/WN male in NAD; alert and oriented x 3 HEENT: NC/AT, PERRL, EOMI Neck: no JVD, no carotid bruit Heart: RRR with ectopy Lungs: no crackles or wheezing Abdomen: soft, NT, +ve bowel sounds Extremties: 1+ leg edema bilaterally Assessment/Plan Assessment/Plan * This patient has decompensated CHF and is known to have a very low EF. Continue to diurese with Lasix at 40mg IV BID. He is known to have a very low EF but is protected by an AICD. Continue digoxin at 0.125mg daily to improve his contractility with careful monitoring of his creatinine since digoxin is excreted via the kidneys. * Begin a dobutamine drip at 5mcg/kg/min * On last office follow up this patient had a systolic pressure of about 90mmHg and his pressure remains low. In addition, he has had issues with hyperkalemia. We will assess his BP following his diuresis and if his BP will tolerate it we will begin a small dose of Spironolactone at 25mg daily with careful monitoring of his creatinine and potassium. * Continue Amiodarone and Coreg. Continue telemetry? Yes
[2017-10-22] VITALS (12 sets, daily range): BP systolic 109–127; BP diastolic 42–68
--- NOTE | 2017-10-22 08:23 | PN- Housestaff ---
Manjeet PIERCE,[facility] 10/22/17 0823: Subjective Follow-up For: Acute decompensated heart failure Tele-Events Since Last Visit: AV paced rhythm with HR 65-86. Subjective: Patient seen and examined at bedside. States his breathing is okay today. He slept in his recliner. Has difficulty lying down flat as he gets short of breath. Review of Systems Constitutional: Reports: no symptoms. Objective Last 24 Hrs of Vital Signs/I&O Vital Signs Date Time Temp Pulse Resp B/P B/P Pulse O2 O2 Flow FiO2 Mean Ox Delivery Rate 10/22 1200 79 118/58 93 Room Air Room Air 10/22 1026 71 118/68 100 Nasal 4.0L Cannula 10/22 0847 74 112/50 10/22 0847 74 112/50 10/22 0830 74 112/50 10/22 0800 Nasal 4.0L Cannula 10/22 0702 98.6 82 20 127/63 99 10/22 0514 80 123/58 10/22 0405 98.9 80 20 123/58 98 10/22 0155 98.9 82 18 120/58 98 10/22 0026 98.6 82 20 127/63 99 10/22 0000 Nasal 3.0L Cannula 10/21 2200 79 110/68 10/21 2101 80 124/59 10/21 2009 98.9 80 18 124/59 100 10/21 2006 99.2 80 18 118/57 100 10/21 1928 99.0 80 18 106/58 100 10/21 1900 78 98/56 10/21 1900 97.8 80 19 96/58 99 Nasal 3.0L Cannula 10/21 1637 79 96/56 10/21 1505 97.5 80 20 100/54 100 Nasal Cannula Intake & Output 10/22 1600 10/22 0800 10/22 0000 Intake Total 320 315 Output Total 400 700 Balance -80 -385 Intake, IV 200 75 Intake, Oral 120 240 Output, Urine 400 700 Patient 184 lb Weight Weight Chair scale Measurement Method Physical Exam General Appearance: Alert, Oriented X3, Cooperative, Mild Distress Skin: No Rashes, No Breakdown Skin Temp/Moisture Exam: Warm/Dry Sepsis Skin Exam (color): Normal for Ethnicity HEENT: Atraumatic Cardiovascular: Normal S1, Normal S2, No Murmurs Lungs: Normal Air Movement, decreased breath sounds at LLL Abdomen: Soft, No Tenderness Neurological: Normal Speech Extremities: mild b/l lower extremity edema Last 24 Hrs of Lab/Aakash Results Last 24 Hrs of Labs/Mics: Laboratory Tests 10/22/17 0652: Anion Gap 9, Estimated GFR 34 L, BUN/Creatinine Ratio 23.2 Assessment/Plan Assessment: 82-year-old male with past medical history of heart failure with reduced ejection fraction of 20% status post AICD and pacemaker placement, CKD, pericarditis presenting this admission with dyspnea and fluid overload. Patient is currently admitted to the telemetry floor for management of the following: Assessment: 1. Acute on chronic decompensated heart failure 2. SLIME on CKD 3. History of severe dilated cardiomyopathy Plan: * Continue telemetry monitoring * Continue to diuresis with IV Lasix 40 mg twice today. Can likely be switched to daily from tomrrow. * Strict ins and outs and daily weights * Continue digoxin 0.125 mg daily * Continue on dobutamine drip * His Cr is elevated since admission. Will monitor renal function. * Continue home medications: Carvedilol, amiodarone, aspirin, pravastatin * Diet: Heart healthy * DVT prophylaxis: Heparin SQ * Code: Full code Problem List: 1. CHF exacerbation Pain Ratin Pain Location: none Pain Goal: Remain pain free Pain Plan: none Tomorrow's Labs & Rationales: CBC, BEP Clarence Carbajal MD 10/22/17 1144: Attending MD Review Statement Attending Statement Attending MD Statement: examined this patient, discuss w/resident/PA/CHRONIC CARE NURSE, agreed w/resident/PA/CHRONIC CARE NURSE, reviewed EMR data (avail) Attending Assessment/Plan: 82M PMH severe dilated cardiomyopathy, chronic systolic heart failure (EF 20%), high grade ventricular ectopy and LBBB s/p AICD and biventricular pacemaker, CKD stage 3, pericarditis (2012), recently admitted (July 2017) for lower GI bleed admitted with dyspnea on exertion and weight gain in the setting of acute on chronic systolic CHF. Patient feels well today, still dyspneic, stable vitals, labs reviewed. Poor diuresis. 1. Acute on chronic systolic CHF 2. Severe dilated cardiomyopathy Plan - Continue on telemetry - Start Dobutamine drip - Continue IV Lasix - I/O, daily weights - Continue home medications - Cardiology consult - DVT PPx
--- NOTE | 2017-10-22 11:11 | PN- Cardiology ---
Subjective Subjective: * Breathing is improving on dobutamine drip. * AV paced rhythm * creatinine increased to 1.9 * Echo shows a low EF of 20% Objective Vital Signs and I&Os Vital Signs Date Time Temp Pulse Resp B/P B/P Pulse O2 O2 Flow FiO2 Mean Ox Delivery Rate 10/22 1026 71 118/68 100 Nasal 4.0L Cannula 10/22 0847 74 112/50 10/22 0847 74 112/50 10/22 0830 74 112/50 10/22 0800 Nasal 4.0L Cannula 10/22 0702 98.6 82 20 127/63 99 10/22 0514 80 123/58 10/22 0405 98.9 80 20 123/58 98 10/22 0155 98.9 82 18 120/58 98 10/22 0026 98.6 82 20 127/63 99 10/22 0000 Nasal 3.0L Cannula 10/21 2200 79 110/68 10/21 2101 80 124/59 10/21 2008 98.9 80 18 124/59 100 10/21 2006 99.2 80 18 118/57 100 10/21 1928 99.0 80 18 106/58 100 10/21 1900 78 98/56 10/21 1900 97.8 80 19 96/58 99 Nasal 3.0L Cannula 10/21 1637 79 96/56 10/21 1505 97.5 80 20 100/54 100 Nasal Cannula Intake & Output 10/22 1600 10/22 0800 10/22 0000 10/21 1600 10/21 0800 10/21 0000 Intake Total 320 315 420 400 Output Total 400 700 850 Balance -80 -385 -430 400 Intake, IV 200 75 20 Intake, Oral 120 240 400 400 Number 1 Bowel Movements Output, Urine 400 700 850 Patient 184 lb 184 lb Weight Weight Chair scale Bed scale Measurement Method Physical Exam: General: WD/WN male in NAD; alert and oriented x 3 HEENT: NC/AT, PERRL, EOMI Neck: no JVD, no carotid bruit Heart: RRR with ectopy Lungs: no crackles or wheezing Abdomen: soft, NT, +ve bowel sounds Extremties: 1+ leg edema bilaterally Assessment/Plan Assessment/Plan * This patient has decompensated CHF and is known to have a very low EF. Continue to diurese with Lasix at 40mg IV BID for one more day. He is known to have a very low EF but is protected by an AICD. Continue digoxin at 0.125mg daily to improve his contractility with careful monitoring of his creatinine since digoxin is excreted via the kidneys. * Continue dobutamine drip at 5mcg/kg/min * On last office follow up this patient had a systolic pressure of about 90mmHg and his pressure remains low. In addition, he has had issues with hyperkalemia. We will assess his BP following his diuresis and if his BP will tolerate it we will begin a small dose of Spironolactone at 25mg daily with careful monitoring of his creatinine and potassium. * Continue Amiodarone and Coreg. Continue telemetry? Yes
[2017-10-23] VITALS (12 sets, daily range): BP systolic 100–144; BP diastolic 46–64
--- NOTE | 2017-10-23 08:16 | PN- Housestaff ---
See Addendum Subjective Follow-up For: CHF SLIME Tele-Events Since Last Visit: AV paced with HR 79-87 Subjective: Patient seen and examined. States his breathing has been better. Offers no complaints. Review of Systems Constitutional: Reports: no symptoms. Objective Last 24 Hrs of Vital Signs/I&O Vital Signs Date Time Temp Pulse Resp B/P B/P Pulse O2 O2 Flow FiO2 Mean Ox Delivery Rate 10/23 1415 97.5 81 18 130/50 93 Room Air 10/23 1324 80 122/50 10/23 1229 80 122/50 10/23 1030 79 120/60 10/23 0830 79 112/50 10/23 0830 79 112/50 10/23 0828 79 112/50 97 Nasal 1.0L Cannula 10/23 0800 95 Room Air Room Air 10/23 0613 98.5 82 20 114/50 97 Nasal Cannula 10/23 0406 98.4 79 20 118/50 96 Nasal Cannula 10/23 0213 82 108/52 10/23 0205 98.4 64 20 100/48 96 Nasal Cannula 10/23 0008 97.8 80 20 116/46 96 Nasal Cannula 10/22 2224 98.3 82 20 118/42 97 Nasal Cannula 10/22 2124 80 116/56 10/22 2011 98.3 80 20 112/48 94 Nasal Cannula 10/22 1800 83 120/58 10/22 1636 79 116/56 10/22 1613 83 109/57 10/22 1612 83 109/57 10/22 1512 97.3 83 18 109/57 91 Nasal Cannula Intake & Output 10/23 1600 10/23 0800 10/23 0000 Intake Total 550 375 785 Output Total 1550 400 700 Balance -1000 -25 85 Intake, IV 175 185 Intake, Oral 550 200 600 Output, Urine 1550 400 700 Patient 179 lb Weight Physical Exam General Appearance: Alert, Oriented X3, Cooperative, Mild Distress Skin: No Rashes, No Breakdown Skin Temp/Moisture Exam: Warm/Dry Sepsis Skin Exam (color): Normal for Ethnicity HEENT: Atraumatic Cardiovascular: Normal S1, Normal S2, No Murmurs Lungs: Clear to Auscultation, Normal Air Movement Abdomen: Soft, No Tenderness Neurological: Normal Speech Extremities: b/l lower extremity edema Last 24 Hrs of Lab/Aakash Results Last 24 Hrs of Labs/Mics: Laboratory Tests 10/23/17 0713: Anion Gap 9, Estimated GFR 39 L, BUN/Creatinine Ratio 22.9, CBC w Diff NO MAN DIFF REQ, RBC 3.34 L, MCV 96.7 H, MCH 30.9, MCHC 32.0 L, RDW 14.9 H, MPV 9.4 , Gran % 76.6 H, Lymphocytes % 11.1 L, Monocytes % 10.7 H, Eosinophils % 1.4, Basophils % 0.2, Absolute Granulocytes 4.3, Absolute Lymphocytes 0.6 L, Absolute Monocytes 0.6, Absolute Eosinophils 0.1, Absolute Basophils 0 Assessment/Plan Assessment: 82-year-old male with past medical history of heart failure with reduced ejection fraction of 20% status post AICD and pacemaker placement, CKD, pericarditis presenting this admission with dyspnea and fluid overload. Patient is currently admitted to the telemetry floor for management of the following: Assessment: 1. Acute on chronic decompensated heart failure 2. SLIME on CKD 3. History of severe dilated cardiomyopathy Plan: * Continue telemetry monitoring * Continue to diuresis with IV Lasix 40 mg twice today. * Strict ins and outs and daily weights * Continue digoxin 0.125 mg daily * Continue on dobutamine drip @5mcg/hr * Repeat CXR today. * His Cr is elevated since admission. Will monitor renal function. Shows some improvement today. * Continue home medications: Carvedilol, amiodarone, aspirin, pravastatin * Diet: Heart healthy * DVT prophylaxis: Heparin SQ * Code: Full code Problem List: 1. CHF exacerbation Pain Ratin Pain Location: none Pain Goal: Remain pain free Pain Plan: none Tomorrow's Labs & Rationales: CBC, BEP
[2017-10-23 08:41] LABS: ABSOLUTE BASOPHIL COUNT 0 /CUMM (0.0-0.2); ABSOLUTE EOSINOPHIL COUNT 0.1 /CUMM (0.0-0.7); ABSOLUTE GRANULOCYTE CT 4.3 /CUMM (1.4-6.5); ABSOLUTE LYMPH COUNT 0.6 /CUMM (1.2-3.4); ABSOLUTE MONOCYTE COUNT 0.6 /CUMM (0.10-0.60); BASOPHIL % 0.2 % (0.0-2.0); EOSINOPHIL % 1.4 % (0-5); GRANULOCYTE % 76.6 % (42.2-75.2); HEMATOCRIT 32.3 % (42-52); MEAN CORPUSCULAR HGB 30.9 PG (27.0-31.0); MEAN CORPUSCULAR VOLUME 96.7 FL (80.0-94.0); MEAN PLATELET VOLUME 9.4 FL (7.4-10.4); PLATELET COUNT 136 /CUMM (130-400); RBC DISTRIBUTION WIDTH 14.9 % (11.5-14.5); RED BLOOD CELL CT 3.34 /CUMM (4.70-6.10); WHITE BLOOD CELL COUNT 5.6 /CUMM (4.8-10.8)
--- NOTE | 2017-10-23 12:48 | PN- Cardiology ---
Subjective Subjective: * Patient is ambulating and breathing comfortably. * AV paced rhythm * creatinine increased improved to 1.7 Objective Vital Signs and I&Os Vital Signs Date Time Temp Pulse Resp B/P B/P Pulse O2 O2 Flow FiO2 Mean Ox Delivery Rate 10/23 1229 80 122/50 10/23 1030 79 120/60 10/23 0830 79 112/50 10/23 0830 79 112/50 10/23 0828 79 112/50 97 Nasal 1.0L Cannula 10/23 0800 95 Room Air Room Air 10/23 0613 98.5 82 20 114/50 97 Nasal Cannula 10/23 0406 98.4 79 20 118/50 96 Nasal Cannula 10/23 0213 82 108/52 10/23 0205 98.4 64 20 100/48 96 Nasal Cannula 10/23 0008 97.8 80 20 116/46 96 Nasal Cannula 10/22 2224 98.3 82 20 118/42 97 Nasal Cannula 10/22 2124 80 116/56 10/22 2010 98.3 80 20 112/48 94 Nasal Cannula 10/22 1800 83 120/58 10/22 1636 79 116/56 10/22 1613 83 109/57 10/22 1612 83 109/57 10/22 1512 97.3 83 18 109/57 91 Nasal Cannula Intake & Output 10/23 1600 10/23 0810/23 0000 10/22 1600 10/23 0700 10/22 0000 Intake Total 375 785 620 320 315 Output Total 400 700 650 400 700 Balance -25 85 -30 -80 -385 Intake, IV 175 185 220 200 75 Intake, Oral 200 600 400 120 240 Output, Urine 400 700 650 400 700 Patient 179 lb 184 lb Weight Weight Chair scale Measurement Method Physical Exam: General: WD/WN male in NAD; alert and oriented x 3 HEENT: NC/AT, PERRL, EOMI Neck: no JVD, no carotid bruit Heart: RRR with ectopy Lungs: no crackles or wheezing Abdomen: soft, NT, +ve bowel sounds Extremties: 1+ leg edema bilaterally Assessment/Plan Assessment/Plan * This patient has decompensated CHF and is known to have a very low EF. We will continue Lasix at 40mg IV BID again today since he continues to have leg swelling. Repeat a chest X-ray. He is known to have a very low EF but is protected by an AICD. Continue digoxin at 0.125mg daily to improve his contractility with careful monitoring of his creatinine since digoxin is excreted via the kidneys. * Continue dobutamine drip at 5mcg/kg/min * On last office follow up this patient had a systolic pressure of about 90mmHg and his pressure remains low. In addition, he has had issues with hyperkalemia. We will assess his BP following his diuresis and if his BP will tolerate it we will begin a small dose of Spironolactone at 25mg daily with careful monitoring of his creatinine and potassium. * Continue Amiodarone and Coreg. Continue telemetry? Yes
--- NOTE | 2017-10-23 16:36 | RADIOLOGY REPORT ---
EXAMINATION: XR CHEST CLINICAL INFORMATION: Pulmonary edema COMPARISON: Previous chest x-rays most recent 10/19/2017 TECHNIQUE: 2 views of the chest were obtained. FINDINGS: The cardiac silhouette is enlarged. There is a left subclavian pacemaker defibrillator that appears unchanged. There is pulmonary venous redistribution and increased central attenuation questionable for mild CHF. This appears slightly increased from previous exam. Some of these changes may be overestimated due to light film technique. There are small bilateral pleural effusions. There are degenerative changes of the spine. IMPRESSION: Mild CHF slightly increased from previous exam.
[2017-10-24] VITALS (12 sets, daily range): BP systolic 96–124; BP diastolic 52–72
[2017-10-24 07:46] LABS: ABSOLUTE BASOPHIL COUNT 0 /CUMM (0.0-0.2); ABSOLUTE EOSINOPHIL COUNT 0.2 /CUMM (0.0-0.7); ABSOLUTE GRANULOCYTE CT 3.5 /CUMM (1.4-6.5); ABSOLUTE LYMPH COUNT 0.7 /CUMM (1.2-3.4); ABSOLUTE MONOCYTE COUNT 0.6 /CUMM (0.10-0.60); BASOPHIL % 0.5 % (0.0-2.0); EOSINOPHIL % 3.6 % (0-5); GRANULOCYTE % 70.1 % (42.2-75.2); HEMATOCRIT 31.5 % (42-52); MEAN CORPUSCULAR HGB 31.2 PG (27.0-31.0); MEAN CORPUSCULAR HGB CONC 32.5 G/DL (33.0-37.0); MEAN PLATELET VOLUME 9.3 FL (7.4-10.4); PLATELET COUNT 144 /CUMM (130-400); RBC DISTRIBUTION WIDTH 15.6 % (11.5-14.5); RED BLOOD CELL CT 3.28 /CUMM (4.70-6.10); WHITE BLOOD CELL COUNT 5.1 /CUMM (4.8-10.8)
--- NOTE | 2017-10-24 08:27 | PN- Housestaff ---
Bisi PIERCE,Sheryl 10/24/17 0826: Subjective Follow-up For: CHF Tele-Events Since Last Visit: D-pacing 79- Subjective: Patient was seen and examined today. Patient reports continued shortness of breath and lower extremity swelling. Patient denies chest pain, palpitations, abdominal pain, n/v, hematuria/dysuria. Review of Systems Constitutional: Reports: see HPI. Objective Last 24 Hrs of Vital Signs/I&O Vital Signs Date Time Temp Pulse Resp B/P B/P Pulse O2 O2 Flow FiO2 Mean Ox Delivery Rate 10/24 1625 83 112/62 10/24 1617 83 112/62 10/24 1421 97.9 79 20 120/68 93 Room Air 10/24 1230 100 124/52 10/24 1017 79 102/52 10/24 1000 102/52 10/24 0902 79 106/54 10/24 0902 79 106/54 10/24 0859 79 106/54 10/24 0807 81 124/68 10/24 0800 Room Air 10/24 0600 97.7 80 18 120/72 95 Room Air 10/24 0359 80 112/60 10/24 0200 80 96/54 10/24 0000 84 102/60 10/23 2321 80 112/64 10/23 2219 93 Room Air 10/23 2200 98.3 80 18 112/64 95 Room Air 10/23 2049 73 114/62 10/23 2000 74 144/62 10/23 1800 79 122/62 Intake & Output 10/24 1600 10/24 0800 10/24 0000 Intake Total 994.8 120 200 Output Total 6194 829 8094 Balance -555.2 -505 -1300 Intake, IV 214.8 Intake, Oral 780 120 200 Number 2 Bowel Movements Output, Urine 2852 373 4590 Patient 181 lb Weight Weight Bed scale Measurement Method Physical Exam General Appearance: Alert, Cooperative Skin Temp/Moisture Exam: Warm/Dry Sepsis Skin Exam (color): Normal for Ethnicity HEENT: Atraumatic, Mucous Membr. moist/pink Cardiovascular: Regular Rate, Normal S1, Normal S2 Lungs: bibasilar fine crackles Abdomen: Normal Bowel Sounds, Soft, No Tenderness Neurological: Normal Speech, Cranial Nerves 3-12 NL Extremities: bilateral lower extremity pitting edema 2+ Current Medications: Current Medications Sig/[place] Start time Last Medication Dose Route Stop Time Status Admin Amiodarone HCl 100 MG QAM 10/20 0900 AC 10/23 PO 0830 Aspirin Buffered 81 MG QAM 10/20 0900 AC 10/23 PO 0831 Carvedilol 3.125 MG BID 10/19 2330 AC 10/23 PO 204 Digoxin 0.125 MG 1700 10/20 1800 AC 10/23 PO 1637 Dobutamine HCl 250 MG Q10H 10/21 1630 AC 10/23 Dextrose/Water 250 ML IV 232 Furosemide 40 MG 0800 & 1700 10/20 0800 AC 10/23 IV 1637 Heparin Sodium 5,000 UNIT Q8 10/20 0600 AC 10/24 (Porcine) SC 0511 Polycarbophil 1,250 MG DAILY 10/20 0900 AC 10/23 PO 08 Pravastatin Sodium 20 MG QPM 10/20 2100 AC 10/23 PO 204 Spironolactone 25 MG DAILY 10/22 1227 AC 10/23 PO 0830 Last 24 Hrs of Lab/Aakash Results Last 24 Hrs of Labs/Mics: Laboratory Tests 10/24/17 0639: Anion Gap 7, Estimated GFR 45 L, BUN/Creatinine Ratio 21.3, CBC w Diff NO MAN DIFF REQ, RBC 3.28 L, MCV 96.0 H, MCH 31.2 H, MCHC 32.5 L, RDW 15.6 H, MPV 9.3, Gran % 70.1, Lymphocytes % 14.4 L, Monocytes % 11.4 H, Eosinophils % 3.6, Basophils % 0.5, Absolute Granulocytes 3.5, Absolute Lymphocytes 0.7 L, Absolute Monocytes 0.6, Absolute Eosinophils 0.2, Absolute Basophils 0 Assessment/Plan Assessment: Patient is an 82-year-old male with past medical history of heart failure with reduced ejection fraction of 20% status post AICD and pacemaker placement, CKD, pericarditis presenting this admission with dyspnea and fluid overload. Patient is currently admitted to the telemetry floor for management of the following: Problems: 1. Acute on chronic decompensated heart failure-significant improvement in lower extremity swelling and improved breathing, currently being diuresed with IV Lasix 40 mg twice daily, cardiology consulted. Patient currently on digoxin 0.125 mg daily, dobutamine drip 2. Chronic conditions: CKD stage III, severe dilated cardiomyopathy 3. SLIME on CKD - improving Plan: Admitted to telemetry Continuous telemetry monitoring Continue to diuresis now increased to IV Lasix 60 mg twice daily Strict I/O and daily weights Continue digoxin 0.125 mg daily Continue on dobutamine drip @5mcg/hr Continue spirnolactone Cardiology consulted. Appreciate recommendations Monitor renal function and electrolytes Continue home medications: Carvedilol, amiodarone, aspirin, pravastatin Diet: Heart healthy DVT prophylaxis: Heparin SQ Code: Full code Problem List: 1. CHF exacerbation Pain Ratin Pain Location: n/a Pain Goal: Remain pain free Pain Plan: none Tomorrow's Labs & Rationales: CBC, BEP Clarence Carbajal MD 10/24/17 1137: Attending MD Review Statement Attending Statement Attending MD Statement: examined this patient, discuss w/resident/PA/SUPPLIER QUALITY, agreed w/resident/PA/SUPPLIER QUALITY, reviewed EMR data (avail) Attending Assessment/Plan: 82M PMH severe dilated cardiomyopathy, chronic systolic heart failure (EF 20%), high grade ventricular ectopy and LBBB s/p AICD and biventricular pacemaker, CKD stage 3, pericarditis (2012), recently admitted (July 2017) for lower GI bleed admitted with dyspnea on exertion and weight gain in the setting of acute on chronic systolic CHF. Patient feels well today, stable vitals, labs reviewed. 1. Acute on chronic systolic CHF 2. Severe dilated cardiomyopathy Plan - Continue on telemetry - Dobutamine drip - Continue IV Lasix - I/O, daily weights - Continue home medications - Cardiology consult - DVT PPx
--- NOTE | 2017-10-24 14:06 | PN- Cardiology ---
Subjective Subjective: * Breathing is improved. Patient has been able to ambulate without problems. * AV paced rhythm. * creatinine 1.5 * slightly worsening pulmonary edema on chest X-ray Objective Vital Signs and I&Os Vital Signs Date Time Temp Pulse Resp B/P B/P Pulse O2 O2 Flow FiO2 Mean Ox Delivery Rate 10/24 1230 100 124/52 10/24 1017 79 102/52 10/24 1000 102/52 10/24 0902 79 106/54 10/24 0902 79 106/54 10/24 0859 79 106/54 10/24 0807 81 124/68 10/24 0800 Room Air 10/24 0600 97.7 80 18 120/72 95 Room Air 10/24 0359 80 112/60 10/24 0200 80 96/54 10/24 0000 84 102/60 10/23 2321 80 112/64 10/23 2219 93 Room Air 10/23 2200 98.3 80 18 112/64 95 Room Air 10/23 2049 73 114/62 10/23 2000 74 144/62 10/23 1800 79 122/62 10/23 1637 80 118/58 10/23 1634 80 118/58 10/23 1415 97.5 81 18 130/50 93 Room Air Intake & Output 10/24 1600 10/24 0000 10/23 1600 10/24 0700 10/23 0000 Intake Total 120 200 550 375 785 Output Total 297 890 6764 1550 400 700 Balance -475 -505 -1300 -1000 -25 85 Intake, IV 175 185 Intake, Oral 120 200 550 200 600 Number 2 Bowel Movements Output, Urine 285 082 1955 1550 400 700 Patient 181 lb 179 lb Weight Weight Bed scale Measurement Method Physical Exam: General: WD/WN male in NAD; alert and oriented x 3 HEENT: NC/AT, PERRL, EOMI Neck: no JVD, no carotid bruit Heart: RRR with ectopy Lungs: no crackles or wheezing Abdomen: soft, NT, +ve bowel sounds Extremties: 1+ leg edema bilaterally Assessment/Plan Assessment/Plan * This patient has decompensated CHF and is known to have a very low EF. We will increase Lasix to 60mg IV BID due to some pulmonary edema that persists on his chest X-ray. He is known to have a very low EF but is protected by an AICD. Continue digoxin at 0.125mg daily to improve his contractility with careful monitoring of his creatinine since digoxin is excreted via the kidneys. * Continue dobutamine drip at 5mcg/kg/min * On last office follow up this patient had a systolic pressure of about 90mmHg and his pressure remains low. Continue Spironolactone at 25mg daily with careful monitoring of his creatinine and potassium. * Continue Amiodarone and Coreg. Continue telemetry? Yes
[2017-10-25] VITALS (9 sets, daily range): BP systolic 108–128; BP diastolic 50–64
--- NOTE | 2017-10-25 07:30 | PN- Housestaff ---
Bisi PIERCE,Sheryl 10/25/17 0730: Subjective Follow-up For: Acute decompensated heart failure Tele-Events Since Last Visit: D pacing, HR: 79-84 Subjective: Patient was seen and examined today. Patient states he is feeling tired today as he did not sleep well last night. Denies chest pain, palpitations, shortness of breath, abdominal pain, n/v/c/d, hematuria/dysuria. Lower extremity swelling improving. Review of Systems Constitutional: Reports: see HPI. Objective Last 24 Hrs of Vital Signs/I&O Vital Signs Date Time Temp Pulse Resp B/P B/P Pulse O2 O2 Flow FiO2 Mean Ox Delivery Rate 10/25 1330 97.6 80 20 108/50 97 Room Air 10/25 1024 97.9 82 18 122/58 98 Room Air 10/25 1023 95 Room Air 10/25 1023 98 Nasal 1.0L Cannula 10/25 0900 79 118/62 10/25 0900 79 118/62 10/25 0857 79 118/62 10/25 0800 97 Nasal 1.0L Cannula 10/25 0710 99.0 79 18 128/50 97 Nasal Cannula 10/25 0445 82 120/58 10/25 0230 79 122/62 10/25 0021 79 108/60 10/25 0000 95 Nasal 1.0L Cannula 10/24 2331 98.9 80 18 108/62 97 Room Air 10/24 2053 83 20 115/68 10/24 2052 83 20 118/68 10/24 1830 98.1 80 20 110/58 96 Room Air 10/24 1625 83 112/62 10/24 1617 83 112/62 10/24 1421 97.9 79 20 120/68 93 Room Air Intake & Output 10/25 1600 10/25 0800 10/25 0000 Intake Total 360 400.8 596.4 Output Total 828 585 0188 Balance -10 100.8 -1583.6 Intake, IV 200.8 116.4 Intake, Oral 360 200 480 Number 2 Bowel Movements Output, Urine [phone] Patient 176 lb Weight Weight Bed scale Measurement Method Physical Exam General Appearance: Alert, Oriented X3, Cooperative, No Acute Distress Skin: No Rashes Sepsis Skin Exam (color): Normal for Ethnicity HEENT: Atraumatic, Mucous Membr. moist/pink Cardiovascular: Regular Rate, Normal S1, Normal S2 Lungs: Clear to Auscultation, Normal Air Movement Abdomen: Normal Bowel Sounds, Soft, No Tenderness Neurological: Normal Speech, Cranial Nerves 3-12 NL Extremities: lower extremity pitting edema 1-2+ Vascular: Normal Pulses, Pulses Symmetrical Current Medications: Current Medications Sig/Milan Start time Last Medication Dose Route Stop Time Status Admin Amiodarone HCl 100 MG QAM 10/20 0900 AC 10/25 PO 0900 Aspirin Buffered 81 MG QAM 10/20 0900 AC 10/25 PO 0900 Carvedilol 3.125 MG BID 10/19 2330 AC 10/25 PO 0900 Digoxin 0.125 MG 1700 10/20 1800 AC 10/24 PO 1625 Dobutamine HCl 250 MG Q10H 10/21 1630 AC 10/25 Dextrose/Water 250 ML IV 0857 Furosemide 60 MG 0800 & 0 10/24 1700 AC 10/25 IV 0851 Furosemide 40 MG 0800 & 1700 10/20 0800 DC 10/24 IV 0901 Heparin Sodium 5,000 UNIT Q8 10/20 0600 AC 10/25 (Porcine) SC 0639 Patient Medication 1 ED ONE ONE 10/24 1815 RI Teaching ED 10/24 1816 Polycarbophil 1,250 MG DAILY 10/20 0900 AC 10/25 PO 0900 Pravastatin Sodium 20 MG QPM 10/20 2100 AC 10/24 PO 205 Spironolactone 25 MG DAILY 10/22 1227 AC 10/25 PO 0900 Last 24 Hrs of Lab/Aakash Results Last 24 Hrs of Labs/Mics: Laboratory Tests 10/25/17 0645: Anion Gap 7, Estimated GFR 48 L, BUN/Creatinine Ratio 20.0 Assessment/Plan Assessment: Patient is an 82-year-old male with past medical history of heart failure with reduced ejection fraction of 20% status post AICD and pacemaker placement, CKD, pericarditis presenting this admission with dyspnea and fluid overload. Patient is currently admitted to the telemetry floor for management of the following: Problems: 1. Acute on chronic decompensated heart failure-significant improvement in lower extremity swelling and improved breathing, currently being diuresed with IV Lasix 60 mg twice daily, cardiology consulted. Patient currently on digoxin 0.125 mg daily, dobutamine drip 2. Chronic conditions: CKD stage III, severe dilated cardiomyopathy 3. SLIME on CKD - improving Plan: Admitted to telemetry Continuous telemetry monitoring Continue to diuresis at IV Lasix 60 mg twice daily Strict I/O and daily weights Continue digoxin 0.125 mg daily Continue on dobutamine drip @5mcg/hr Continue spirnolactone Cardiology consulted. Appreciate recommendations Monitor renal function and electrolytes Continue home medications: Carvedilol, amiodarone, aspirin, pravastatin Diet: Heart healthy DVT prophylaxis: Heparin SQ Code: Full code Problem List: 1. CHF exacerbation Pain Ratin Pain Location: n/a Pain Goal: Remain pain free Pain Plan: n/a Tomorrow's Labs & Rationales: Clarence Perez MD 10/25/17 1441: Attending MD Review Statement Attending Statement Attending MD Statement: examined this patient, discuss w/resident/PA/ATG JAVA DEVELOPER, agreed w/resident/PA/ATG JAVA DEVELOPER, reviewed EMR data (avail) Attending Assessment/Plan: 82M PMH severe dilated cardiomyopathy, chronic systolic heart failure (EF 20%), high grade ventricular ectopy and LBBB s/p AICD and biventricular pacemaker, CKD stage 3, pericarditis (2012), recently admitted (July 2017) for lower GI bleed admitted with dyspnea on exertion and weight gain in the setting of acute on chronic systolic CHF. Patient feels well today, stable vitals, labs reviewed. 1. Acute on chronic systolic CHF 2. Severe dilated cardiomyopathy Plan - Continue on telemetry - Dobutamine drip - Continue IV Lasix - I/O, daily weights - Continue home medications - Cardiology consult - DVT PPx
--- NOTE | 2017-10-25 19:38 | PN- Cardiology ---
Subjective Subjective: * Patient ambulated without complaints. No shortness of breath. * AV paced rhythm * creatinine 1.4 Objective Vital Signs and I&Os Vital Signs Date Time Temp Pulse Resp B/P B/P Pulse O2 O2 Flow FiO2 Mean Ox Delivery Rate 10/25 1858 80 110/60 10/25 1751 80 118/58 10/25 1717 80 118/58 10/25 1600 98 Room Air 10/25 1330 97.6 80 20 108/50 97 Room Air 10/25 1024 97.9 82 18 122/58 98 Room Air 10/25 1023 95 Room Air 10/25 1023 98 Nasal 1.0L Cannula 10/25 0900 79 118/62 10/25 0900 79 118/62 10/25 0857 79 118/62 10/25 0800 97 Nasal 1.0L Cannula 10/25 0710 99.0 79 18 128/50 97 Nasal Cannula 10/25 0445 82 120/58 10/25 0230 79 122/62 10/25 0021 79 108/60 10/25 0000 95 Nasal 1.0L Cannula 10/24 2331 98.9 80 18 108/62 97 Room Air 10/24 205 83 20 115/68 10/25 2051 83 20 118/68 Intake & Output 10/25 1600 10/25 0800 10/25 0000 10/24 1600 10/24 0000 Intake Total 960 400.8 596.4 994.8 120 200 Output Total 334 573 6598 3977 919 1873 Balance 190 100.8 -1583.6 -555.2 -505 -1300 Intake, IV 200.8 116.4 214.8 Intake, Oral 960 200 480 780 120 200 Number 1 2 2 Bowel Movements Output, Urine 839 638 4192 4449 394 6569 Patient 176 lb 181 lb Weight Weight Bed scale Bed scale Measurement Method Physical Exam: General: WD/WN male in NAD; alert and oriented x 3 HEENT: NC/AT, PERRL, EOMI Neck: no JVD, no carotid bruit Heart: RRR with ectopy Lungs: no crackles or wheezing Abdomen: soft, NT, +ve bowel sounds Extremties: No leg edema Assessment/Plan Assessment/Plan * This patient had decompensated CHF in the setting of a low EF but is dramatically improved. Stop IV Lasix and dobutamine and begin Lasix 60mg PO BID. Continue digoxin at 0.125mg daily to improve his contractility with careful monitoring of his creatinine since digoxin is excreted via the kidneys. * Continue Spironolactone at 25mg daily with careful monitoring of his creatinine and potassium. * Continue Amiodarone and Coreg. * Anticipate discharge tomorrow if doing well with these changes. Continue telemetry? Yes
[2017-10-26 02:02] VITALS: BP 122/58
[2017-10-26 06:45] VITALS: BP 90/50
--- NOTE | 2017-10-26 07:43 | PN- Housestaff ---
Subjective Follow-up For: Acute decompensated heart failure Tele-Events Since Last Visit: D pacin-80s Subjective: Patient was seen and examined today. Denies any chest pain, palpitations, SOB, abdominal pain, n/v/c/d, dysuria/hematuria. Improved lower extremity swelling. Patient walked around the floor with no respiratory distress. Review of Systems Constitutional: Reports: see HPI. Objective Last 24 Hrs of Vital Signs/I&O Vital Signs Date Time Temp Pulse Resp B/P B/P Pulse O2 O2 Flow FiO2 Mean Ox Delivery Rate 10/26 0848 80 96/52 10/26 0948 98.5 80 20 90/50 10/26 0800 98 Room Air Room Air 10/26 0645 98.5 80 20 90/50 95 Room Air 10/26 0202 80 122/58 10/26 0000 Room Air 10/25 2253 99.0 79 20 122/62 96 Room Air 10/25 2028 83 110/64 10/25 2026 83 110/64 10/25 1858 80 110/60 10/25 1751 80 118/58 10/25 1717 80 118/58 Intake & Output 10/26 1600 10/26 0800 10/26 0000 Intake Total 500 220 720 Output Total 550 Balance 500 220 170 Intake, Oral 500 220 720 Output, Urine 550 Physical Exam General Appearance: Alert, Oriented X3, Cooperative, No Acute Distress Other Physical Findings: HEENT: Atraumatic, Mucous Membr. moist/pink Cardiovascular: Regular Rate, Normal S1, Normal S2 Lungs: Clear to Auscultation, Normal Air Movement Abdomen: Normal Bowel Sounds, Soft, No Tenderness Neurological: Normal Speech, Cranial Nerves 3-12 NL Extremities: lower extremity pitting edema 1-2+ Vascular: Normal Pulses, Pulses Symmetrical Current Medications: Current Medications Sig/Milan Start time Last Medication Dose Route Stop Time Status Admin Amiodarone HCl 100 MG QAM 10/20 0900 AC 10/26 PO 0948 Aspirin Buffered 81 MG QAM 10/20 0900 AC 10/26 PO 0948 Carvedilol 3.125 MG BID 10/19 2330 AC 10/26 PO 947 Digoxin 0.125 MG 1700 10/20 1800 AC 10/25 PO 1717 Dobutamine HCl 250 MG Q10H 10/21 1630 DC 10/25 Dextrose/Water 250 ML IV 1858 Furosemide 60 MG 7:30 AM, & 4:30 PM 10/26 0730 AC 10/26 PO 0756 Furosemide 60 MG 0800 & 1700 10/24 1700 DC 10/25 IV 1718 Heparin Sodium 5,000 UNIT Q8 10/20 0600 AC 10/26 (Porcine) SC 0631 Polycarbophil 1,250 MG DAILY 10/20 0900 AC 10/26 PO 0949 Pravastatin Sodium 20 MG QPM 10/20 2100 AC 10/25 PO 2028 Spironolactone 25 MG DAILY 10/22 1227 AC 10/26 PO 0948 Last 24 Hrs of Lab/Aakash Results Last 24 Hrs of Labs/Mics: Laboratory Tests 10/26/17 0630: Anion Gap 8, Estimated GFR 45 L, BUN/Creatinine Ratio 25.3 H Assessment/Plan Assessment: Patient is an 82-year-old male with past medical history of heart failure with reduced ejection fraction of 20% status post AICD and pacemaker placement, CKD, pericarditis presenting this admission with dyspnea and fluid overload. Patient is currently admitted to the telemetry floor for management of the following: Problems: 1. Acute on chronic decompensated heart failure-significant improvement in lower extremity swelling and improved breathing, currently being diuresed with PO Lasix 60 mg twice daily, cardiology consulted. Patient currently on digoxin 0.125 mg daily, spirnolactone. 2. Chronic conditions: CKD stage III, severe dilated cardiomyopathy 3. SLIME on CKD - improving Plan: Admitted to telemetry Continuous telemetry monitoring Continue to diuresis with PO Lasix 60 mg twice daily Strict I/O and daily weights Continue digoxin 0.125 mg daily Continue spirnolactone Cardiology consulted. Appreciate recommendations Monitor renal function and electrolytes Continue home medications: Carvedilol, amiodarone, aspirin, pravastatin CXR today shows resolution of CHF Discharge pending digoxin level and cardiology recommendations today Diet: Heart healthy DVT prophylaxis: Heparin SQ Code: Full code Problem List: 1. CHF exacerbation Pain Ratin Pain Location: n/a Pain Goal: Remain pain free Pain Plan: n/a Tomorrow's Labs & Rationales: none- discharge today
[2017-10-26] MEDS ORDERED: FUROSEMIDE20 M1 PO (09:15)
[2017-10-26] MEDS ORDERED: ALDACTONE25 MG PO (09:15)
[2017-10-26] MEDS ORDERED: LANOXIN125 MCG PO (09:15)
--- NOTE | 2017-10-26 09:17 | Patient Discharge Instructions ---
Discharge Instructions General Discharge Information You were seen/treated for: Congestive Heart Failure Special Instructions: 1. Please follow up with your primary care physician and your food quality technician, Dr. Gardner 2. Please note the new medications and medication changes: - Lasix has been increased from 40mg daily to 60mg daily - Spirnolactone 25mg daily added - Digoxin 0.125mg daily added Acute Coronary Syndrome Inclusion Criteria At DC or during hospital stay patient has or had the following: Discharge Core Measures Meds if any: Prescribed or Continued at Discharge Meds if any: NOT Prescribed or Continued at Discharge Congestive Heart Failure Inclusion Criteria At DC or during hospital stay patient has or had the following: Discharge Core Measures Meds if any: Prescribed or Continued at Discharge Meds if any: NOT Prescribed or Continued at Discharge Cerebrovascular accident Inclusion Criteria At DC or during hospital stay patient has or had the following: CVA/TIA Diagnosis No Discharge Core Measures Meds if any: Prescribed or Continued at Discharge Meds if any: NOT Prescribed or Continued at Discharge Venous thromboembolism Discharge Core Measures - Per Current guidelines, there needs to be overlap - treatment for the first 5 days of Warfarin therapy. - If discharged on Warfarin prior to 5 days of - overlap therapy, the patient will need to be - assessed for post discharge needs including - *Post discharge parental anticoagulation - *Warfarin and/or parental anticoagulation education - *Follow up date to check INR post discharge Meds if any: Prescribed or Continued at Discharge Note: Overlap Therapy is Warfarin and Anticoagulant Meds if any: NOT Prescribed or Continued at Discharge
[2017-10-26 09:48] VITALS: BP 96/52
--- NOTE | 2017-10-26 16:04 | RADIOLOGY REPORT ---
EXAMINATION: XR PORTABLE CHEST CLINICAL INFORMATION: 82-year-old male patient on Lasix. COMPARISON: Chest x-rays from 11/24/2014 through 10/23/2017. TECHNIQUE: Portable AP semierect view of the chest was obtained. FINDINGS: The heart remains enlarged. The left pectoral AICD pacemaker remains unchanged in position. Lungs are clear. There is no overt pleural effusion. IMPRESSION: Resolution of the CHF previously described.
--- NOTE | 2017-10-26 16:57 | PN- Cardiology ---
Subjective Subjective: * Patient ambulated and breathing is at his baseline off dobutamine. * Chest X-ray shows resolution of CHF. * creatinine is slightly higher at 1.5 Objective Vital Signs and I&Os Vital Signs Date Time Temp Pulse Resp B/P B/P Pulse O2 O2 Flow FiO2 Mean Ox Delivery Rate 10/26 0948 80 96/52 10/26 0948 98.5 80 20 90/50 10/26 0800 98 Room Air Room Air 10/26 0645 98.5 80 20 90/50 95 Room Air 10/26 0202 80 122/58 10/26 0000 Room Air 10/25 2253 99.0 79 20 122/62 96 Room Air 10/25 2028 83 110/64 10/25 2026 83 110/64 10/25 1858 80 110/60 10/25 1751 80 118/58 10/25 1717 80 118/58 Intake & Output 10/26 1600 10/26 0800 10/26 0000 10/25 1600 10/25 0800 10/25 0000 Intake Total 500 220 720 960 400.8 596.4 Output Total 550 465 044 9064 Balance 500 220 170 190 100.8 -1583.6 Intake, IV 200.8 116.4 Intake, Oral 500 220 720 960 200 480 Number 1 2 Bowel Movements Output, Urine 550 [phone] Patient 176 lb Weight Weight Bed scale Measurement Method Physical Exam: General: WD/WN male in NAD; alert and oriented x 3 HEENT: NC/AT, PERRL, EOMI Neck: no JVD, no carotid bruit Heart: RRR with ectopy Lungs: scant crackles at bases without wheezing Abdomen: soft, NT, +ve bowel sounds Extremties: No leg edema Assessment/Plan Assessment/Plan * This patient had decompensated CHF in the setting of a low EF but is dramatically improved. He appears to be doing reasonably well off dobutamine although he has only been of this medication for less than 24 hours. His creatinine has risen a small amount which is to be expected off dobutamine. Continue Lasix at 60mg PO BID with careful follow up of his digoxin level, BUN, creatinine and potassium as an outpatient. Dobutamine has been checked and is in the acceptable therapeutic range. * Continue Spironolactone at 25mg daily with careful monitoring of his creatinine and potassium. * Continue Amiodarone and Coreg. * Okay for discharge to home with follow up in the office in one week. Continue telemetry? No
[2017-10-26] MEDS ORDERED: FUROSEMIDE40 M1 PO (18:13)
== END 2017-10-26 18:00 | DRG 291 ==
LOC: ERH 18:07 → ERHI 21:38 → 1NO 21:38 → ENRESERV 22:06 → ENTRNSPT 22:26 → 1NO 22:38 → EDTRNSPT 22:48 → EDTRNSPTSTS 22:48 → CMPTRNSPT 10-20 07:09 → 1NO 10-20 08:48
PROVIDERS: Internal Medicine; Physician Assistant Medical; Student in an Organized Health Care Education/Training Program
DX: I13.0 Hypertensive heart and chronic kidney disease with heart failure and stage 1 through stage 4 chronic kidney disease, or unspecified chronic kidney disease (principal); I50.23 Acute on chronic systolic (congestive) heart failure; I42.0 Dilated cardiomyopathy; D53.9 Nutritional anemia, unspecified; Z95.0 Presence of cardiac pacemaker; N18.3 Chronic kidney disease, stage 3 (moderate); Z88.8 Allergy status to other drugs, medicaments and biological substances; Z91.81 History of falling
CPT/HCPCS: 1NSP; 36415; 36592; 71045; 71046; 81001; 82436; 93005; 93010; C8929; J1644; J1940; Q9957

== ENCOUNTER → 2018-02-20 | Day surgery (SDC) | payer OTHER, MEDICARE ==
[~2018-02-20] VITALS: Ht 165.1 cm; Wt 71.2 kg
[~2018-02-20] MED LIST changes: +ALDACTONE25 MG PO; +FUROSEMIDE20 M1 PO; +FUROSEMIDE40 M1 PO; +LANOXIN125 MCG PO
--- NOTE | 2018-02-20 10:56 | Operative Report ---
Operative/Inv Procedure Report Surgery Date: 02/20/18 Name of Procedure: Cataract extraction lens implantation left eye Pre-Operative Diagnosis: Age-related cataract left eye 20/50 vision Post-Operative Diagnosis: Same Estimated Blood Loss: none Surgeon/Costume Design Teacher: Karan PIERCE,Dean Jang Anesthesia: local monitored anesthesi Complications: None Operative/Procedure Note Note: The patient was brought to the operating room standard monitoring equipment was attached the patient was prepped and draped in the usual fashion for intraocular surgery. A lid speculum was placed to retract the lids. The case was begun by making 1 partial-thickness corneal relaxing incision at 10. A temporal incision with a 2.4 mm keratome. The eye was stabilized with a Del Rosario ring during this incision. 1 mL of non-preserved lidocaine was introduced into the anterior chamber to provide anesthesia. The anterior chamber was then filled and deepened with viscoelastic. A curvilinear capsulorrhexis was achieved using a 30-gauge needle and is a cystotome and capsulorrhexis was finished using a Utrata forceps. A second or paracentesis incision was made temporally with a 1 mm MVR blade. The lens was then hydrodissected with balanced salt solution and found to be rotatable. The lens was emulsified using phacoemulsification and a modified four-quadrant cracking technique. The residual cortical material was removed using automated irrigation and aspiration and as much of the anterior capsular rim was cleaned as well as possible. The posterior capsule was cleaned first with the automated machine on a low setting and then manually with a Jimy squeegee. The capsular bag was deepened with viscoelastic. The lens a Technis 1 14.0 Diopter placed into the bag under direct visualization and rotated so that the haptics were at 12 and 6:00. Viscoelastic was then removed from the eye by flushing it out and then by automated irrigation and aspiration. The eye was pressurized to a normal tone. 1/10 of a cc of cefuroxime solution was introduced into the anterior chamber to provide antibiotic prophylaxis. The wounds were sealed by hydrating the stroma adjacent to them and the eye was left at a proper tone after the wounds were checked and found not to be leaking. The lid speculum was removed from the orbit. Antibiotic and steroid drops were placed on the eye and then the eye was shielded. Monitoring equipment was removed from the patient and the patient was removed from the operative suite to the holding area. The patient tolerated the procedure well and will be seen in the office tomorrow.
== END ==
LOC: STS 03:41
DX: H25.9 Unspecified age-related cataract (principal); I50.9 Heart failure, unspecified; Z95.0 Presence of cardiac pacemaker; M19.90 Unspecified osteoarthritis, unspecified site; Z79.82 Long term (current) use of aspirin
CPT/HCPCS: J2250; V2632